=== PATIENT | female | born 1995 | race Native Hawaiian/Other Pacific Islander ===

== ENCOUNTER → 2016-11-17 | Outpatient (CLI) | payer OTHER ==
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
== END | disposition home or self-care (01) ==
LOC: RADUSWWP 16:38
PROVIDERS: ATTEND Obstetrics & Gynecology
DX: Q51.3 Bicornate uterus (principal)
CPT/HCPCS: 76830

== ENCOUNTER 2018-04-09 13:32 | Emergency (ER) | payer OTHER ==
[2018-04-09] MEDS ORDERED: SODIUM CHLORIDE 0.9% 1,000 ML IV STA ×2 (14:49→16:13)
--- NOTE | 2018-04-09 15:04 | ED ---
General Adult HPI - General Chief complaint: Dizziness Stated complaint: dizziness Time Seen by Provider: 04/09/18 14:40 Source: patient, RN notes reviewed Mode of arrival: wheelchair Limitations: no limitations - History of Present Illness Initial comments: Patient 22-year-old female presented to the emergency room today with a chief complaint of near syncopal episode that occurred approximately an hour before arrival. Patient states that she was at work. States she was walking down the hallway carrying a tray when she came very dizzy lightheaded and had to get onto a side rail because she was afraid she was going to fall. Patient does admit the past 2 days she's had these episodes of feeling very dizzy. She states that are happening at random. States lasting just a few minutes at a time. Patient states that appetite has not changed. Denies any changes in medications. Patient does admit to history anxiety and states that she did have some chest pain with the symptoms earlier but thought it was just her anxiety did not think much of it. Patient denies any other complaints or symptoms at this time. Patient denies any recent fever, chills, shortness of breath, chest pain, back pain, abdominal pain, nausea or vomiting, numbness or tingling, headaches or visual changes, or any other complaints. - Related Data Home Medications Medication Instructions Recorded Confirmed Acetaminophen [Tylenol Extra 1,000 mg PO BID PRN 04/09/18 04/09/18 Strength] Levothyroxine Sodium [Synthroid] 25 mcg PO DAILY 04/09/18 04/09/18 Sertraline [Zoloft] 50 mg PO DAILY 04/09/18 04/09/18 traZODone HCL 50 mg PO HS 04/09/18 04/09/18 Allergies Allergy/AdvReac Type Severity Reaction Status Date / Time Sulfa (Sulfonamide Allergy Rash/Hives Verified 04/09/18 16:09 Antibiotics) Review of Systems ROS Statement: Those systems with pertinent positive or pertinent negative responses have been documented in the HPI. ROS Other: All systems not noted in ROS Statement are negative. Past Medical History Past Medical History: Thyroid Disorder Additional Past Medical History / Comment(s): hypothryoid; LUPUS History of Any Multi-Drug Resistant Organisms: None Reported Past Surgical History: Adenoidectomy, Cholecystectomy, Tonsillectomy Past Anesthesia/Blood Transfusion Reactions: No Reported Reaction Past Psychological History: No Psychological Hx Reported Smoking Status: Current every day smoker Past Alcohol Use History: None Reported Past Drug Use History: None Reported - Past Family History Mother Additional Family Medical History / Comment(s): lung cancer father Additional Family Medical History / Comment(s): reproductive CA General Exam - General Exam Comments Initial Comments: General: The patient is awake and alert, in no distress, and does not appear acutely ill. Eye: Pupils are equal, round and reactive to light, extra-ocular movements are intact. No nystagmus. There is normal conjunctiva bilaterally. No signs of icterus. Ears, nose, mouth and throat: There are moist mucous membranes and no oral lesions. Neck: The neck is supple, there is no tenderness or JVD. Cardiovascular: There is a regular rate and rhythm. No murmur, rub or gallop is appreciated. Respiratory: Lungs are clear to auscultation, respirations are non-labored, breath sounds are equal. No wheezes, stridor, rales, or rhonchi. Gastrointestinal: Soft, non-distended, non-tender abdomen without masses or organomegaly noted. There is no rebound or guarding present. No CVA tenderness. Bowel sounds are unremarkable. Musculoskeletal: Normal ROM, no tenderness. Strength 5/5. Sensation intact. Radial pulses equal bilaterally 2+. Neurological: A&O x 3. CN II-XII intact, There are no obvious motor or sensory deficits. Coordination appears grossly intact. Speech is normal. Skin: Skin is warm and dry and no rashes or lesions are noted. Psychiatric: Cooperative, appropriate mood & affect, normal judgment. Limitations: no limitations Course Vital Signs 04/09/18 04/09/18 04/09/18 13:53 15:48 16:41 Temperature 98.4 F Pulse Rate 83 66 Pulse Rate [ 75 Sitting] Pulse Rate [ 71 Standing Pulse Oximetery] Pulse Rate [ 100 Standing] Pulse Rate [ 71 Supine Pulse Oximetery] Respiratory 20 18 16 Rate Blood Pressure 147/84 100/82 Blood Pressure 111/66 [Right Arm Supine] Blood Pressure 120/75 [Sitting] Blood Pressure 120/82 [Standing] O2 Sat by Pulse 97 98 Oximetry EKG Findings - EKG Comments: EKG Findings:: EKG performed at 1417: Shows normal sinus rhythm at 81 bpm. MT interval 140. QRS 82. QT/QTC 360/418. No acute ST changes. Medical Decision Making - Medical Decision Making Patient reexamined at this time shows no signs of distress. Patient orthostatics were positive with heart rate increasing from 71-100 from a sitting to standing position. Patient blood pressure has stayed stable. Patient does admit to feeling better after IV fluids here in emergency room. Labs were reviewed unremarkable. EKG shows normal sinus rhythm. Patient will be discharged home advised to increase oral fluids. Advised to follow-up with the family physician. Advised return for any other concerns. - Lab Data Result diagrams: 04/09/18 15:41 04/09/18 15:41 Lab Results 04/09/18 04/09/18 04/09/18 Range/Units 14:58 14:58 15:41 WBC (3.8-10.6) k/uL RBC (3.80-5.40) m/uL Hgb (11.4-16.0) gm/dL Hct (34.0-46.0) % MCV (80.0-100.0) fL MCH (25.0-35.0) pg MCHC (31.0-37.0) g/dL RDW (11.5-15.5) % Plt Count (150-450) k/uL Neutrophils % % Lymphocytes % % Monocytes % % Eosinophils % % Basophils % % Neutrophils # (1.3-7.7) k/uL Lymphocytes # (1.0-4.8) k/uL Monocytes # (0-1.0) k/uL Eosinophils # (0-0.7) k/uL Basophils # (0-0.2) k/uL PT (9.0-12.0) sec INR (<1.2) APTT (22.0-30.0) sec D-Dimer (<0.60) mg/L FEU Sodium (137-145) mmol/L Potassium (3.5-5.1) mmol/L Chloride (98-107) mmol/L Carbon Dioxide (22-30) mmol/L Anion Gap mmol/L BUN (7-17) mg/dL Creatinine (0.52-1.04) mg/dL Est GFR (CKD-EPI)AfAm (>60 ml/min/1.73 sqM) Est GFR (CKD-EPI)NonAf (>60 ml/min/1.73 sqM) Glucose (74-99) mg/dL Calcium (8.4-10.2) mg/dL Total Bilirubin (0.2-1.3) mg/dL AST (14-36) U/L ALT (9-52) U/L Alkaline Phosphatase (38-126) U/L Total Creatine Kinase 121 (30-135) U/L CK-MB (CK-2) 0.4 (0.0-2.4) ng/mL CK-MB (CK-2) Rel Index 0.3 Troponin I <0.012 (0.000-0.034) ng/mL Total Protein (6.3-8.2) g/dL Albumin (3.5-5.0) g/dL Urine Color Yellow Urine Appearance Clear (Clear) Urine pH 7.5 (5.0-8.0) Ur Specific [place] 1.019 (1.001-1.035) Urine Protein Negative (Negative) Urine Glucose (UA) Negative (Negative) Urine Ketones Negative (Negative) Urine Blood Negative (Negative) Urine Nitrite Negative (Negative) Urine Bilirubin Negative (Negative) Urine Urobilinogen <2.0 (<2.0) mg/dL Ur Leukocyte Esterase Negative (Negative) Urine HCG, Qual Not Detected (Not Detectd) 04/09/18 04/09/18 04/09/18 Range/Units 15:41 15:41 15:41 WBC 10.0 (3.8-10.6) k/uL RBC 5.03 (3.80-5.40) m/uL Hgb 15.2 (11.4-16.0) gm/dL Hct 46.7 H (34.0-46.0) % MCV 92.7 (80.0-100.0) fL MCH 30.2 (25.0-35.0) pg MCHC 32.6 (31.0-37.0) g/dL RDW 12.7 (11.5-15.5) % Plt Count 329 (150-450) k/uL Neutrophils % 71 % Lymphocytes % 24 % Monocytes % 4 % Eosinophils % 1 % Basophils % 0 % Neutrophils # 7.0 (1.3-7.7) k/uL Lymphocytes # 2.3 (1.0-4.8) k/uL Monocytes # 0.4 (0-1.0) k/uL Eosinophils # 0.1 (0-0.7) k/uL Basophils # 0.0 (0-0.2) k/uL PT 10.2 (9.0-12.0) sec INR 0.9 (<1.2) APTT 25.9 (22.0-30.0) sec D-Dimer 0.23 (<0.60) mg/L FEU Sodium 138 (137-145) mmol/L Potassium 4.9 (3.5-5.1) mmol/L Chloride 105 (98-107) mmol/L Carbon Dioxide 25 (22-30) mmol/L Anion Gap 8 mmol/L BUN 16 (7-17) mg/dL Creatinine 0.63 (0.52-1.04) mg/dL Est GFR (CKD-EPI)AfAm >90 (>60 ml/min/1.73 sqM) Est GFR (CKD-EPI)NonAf >90 (>60 ml/min/1.73 sqM) Glucose 89 (74-99) mg/dL Calcium 10.0 (8.4-10.2) mg/dL Total Bilirubin 0.5 (0.2-1.3) mg/dL AST 25 (14-36) U/L ALT 21 (9-52) U/L Alkaline Phosphatase 116 (38-126) U/L Total Creatine Kinase (30-135) U/L CK-MB (CK-2) (0.0-2.4) ng/mL CK-MB (CK-2) Rel Index Troponin I (0.000-0.034) ng/mL Total Protein 7.4 (6.3-8.2) g/dL Albumin 4.3 (3.5-5.0) g/dL Urine Color Urine Appearance (Clear) Urine pH (5.0-8.0) Ur Specific [place] (1.001-1.035) Urine Protein (Negative) Urine Glucose (UA) (Negative) Urine Ketones (Negative) Urine Blood (Negative) Urine Nitrite (Negative) Urine Bilirubin (Negative) Urine Urobilinogen (<2.0) mg/dL Ur Leukocyte Esterase (Negative) Urine HCG, Qual (Not Detectd) Disposition Clinical Impression: Orthostatic dizziness Disposition: HOME SELF-CARE Condition: Good Instructions (If sedation given, give patient instructions): Dizziness (ED) Additional Instructions: Please increase oral fluids as discussed. Please follow the family doctor over the next 2 days. Please return here to the emergency room for any other concerns. Is patient prescribed a controlled substance at d/c from ED?: No Referrals: Benito Carreon DO [Primary Care Provider] - 1-2 days Time of Disposition: 17:10
[2018-04-09 15:11] LABS: Appearance,Urine Clear (Clear); Bilirubin,Urine Negative (Negative); Blood,Urine Negative (Negative); Color,Urine Yellow; Glucose,Urine (UA) Negative (Negative); Ketones,Urine Negative (Negative); Leukocyte Esterase,Urine Negative (Negative); Nitrite,Urine Negative (Negative); PH, Urine 7.5 (5.0-8.0); Protein,Urine Negative (Negative); Specific Gravity,Urine 1.019 (1.001-1.035); Urobilinogen,Urine <2.0 mg/dL (<2.0)
--- NOTE | 2018-04-09 15:36 | XR ---
EXAMINATION TYPE: XR chest 2V DATE OF EXAM: 04/09/2018 CLINICAL HISTORY: Pain TECHNIQUE: Frontal and lateral views of the chest are obtained. COMPARISON: 05/27/2005 FINDINGS: There is no focal air space opacity, pleural effusion, or pneumothorax seen. The cardiac silhouette size is within normal limits. The osseous structures are intact. IMPRESSION: No acute cardiopulmonary process.
[2018-04-09 15:55] LABS: Basophils % (A) 0 %; Eosinophils # (A) 0.1 k/uL (0-0.7); Eosinophils % (A) 1 %; HCT 46.7 % (34.0-46.0); HGB 15.2 gm/dL (11.4-16.0); Lymphocytes # (A) 2.3 k/uL (1.0-4.8); Lymphocytes % (A) 24 %; MCH 30.2 pg (25.0-35.0); MCHC 32.6 g/dL (31.0-37.0); MCV 92.7 fL (80.0-100.0); Mean Platelet Volume 6.3; Monocytes # (A) 0.4 k/uL (0-1.0); Monocytes % (A) 4 %; Neutrophils % (A) 71 %; Platelet Count 329 k/uL (150-450); RBC 5.03 m/uL (3.80-5.40); RDW 12.7 % (11.5-15.5)
[2018-04-09 16:06] LABS: D-Dimer 0.23 mg/L FEU (<0.60); INR 0.9 (<1.2); Partial Thromboplastin Time 25.9 sec (22.0-30.0); Prothrombin Time 10.2 sec (9.0-12.0)
[2018-04-09 16:14] LABS: Creatine Kinase 121 U/L (30-135)
[2018-04-09 16:16] LABS: ALT 21 U/L (9-52); AST 25 U/L (14-36); Albumin 4.3 g/dL (3.5-5.0); Alkaline Phosphatase 116 U/L (38-126); Anion Gap 8 mmol/L; Blood Urea Nitrogen 16 mg/dL (7-17); Carbon Dioxide 25 mmol/L (22-30); Chloride 105 mmol/L (98-107); Glucose 89 mg/dL (74-99); Potassium 4.9 mmol/L (3.5-5.1); Sodium 138 mmol/L (137-145); Total Bilirubin 0.5 mg/dL (0.2-1.3); Total Protein 7.4 g/dL (6.3-8.2)
[2018-04-09 16:26] LABS: Creatine Kinase MB 0.4 ng/mL (0.0-2.4); Troponin I <0.012 ng/mL (0.000-0.034)
[2018-04-09 19:17] VITALS: BP 100/72; PULSE 99; RESP 18; TEMP 98.2
== END 2018-04-09 19:15 | disposition home or self-care (01) ==
LOC: EC 13:32
DX: R42 Dizziness and giddiness (principal); E03.9 Hypothyroidism, unspecified; F41.9 Anxiety disorder, unspecified; F17.200 Nicotine dependence, unspecified, uncomplicated; Z88.2 Allergy status to sulfonamides; Z79.890 Hormone replacement therapy; Z79.899 Other long term (current) drug therapy
CPT/HCPCS: 36415; 71046; 80053; 81003; 81025; 82550; 82553; 84484; 85025; 85379; 85610; 85730; 93005; 96360; 96361; 99284

== ENCOUNTER 2018-07-08 09:10 | Inpatient (IN) | payer MEDICAID, OTHER ==
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
[2018-07-08 10:57] LABS: Amphetamine Screen,Urine Not Detected (NotDetected); Barbiturate Screen,Urine Not Detected (NotDetected); Benzodiazepines Screen,Urine Not Detected (NotDetected); Cocaine Screen,Urine Not Detected (NotDetected); Methadone Screen, Urine Not Detected (NotDetected); Opiate Screen,Urine Not Detected (NotDetected); Oxycodone Screen, Urine Not Detected (NotDetected); Phencyclidine Screen,Urine Not Detected (NotDetected); Tricyclic Antidepressant,Urine Not Detected (NotDetected); Urn Cannabinoid Scrn Not Detected (NotDetected)
[2018-07-08] MEDS ORDERED: ACETAMINOPHEN TAB 325 MG TAB PO PRN (14:58)
[2018-07-08] MEDS ORDERED: LORazepam 1 MG TAB PO PRN (14:58)
[2018-07-08] MEDS ORDERED: ZIPRASIDONE 20 MG VIAL IM PRN (14:58)
[2018-07-08] MEDS ORDERED: MAG HYDROX/AL HYDROX/SIMETH 30 ML CUP PO PRN (14:58)
[2018-07-08] MEDS ORDERED: MAGNESIUM HYDROXIDE 2,400 MG/10 ML CUP PO PRN (14:58)
[2018-07-08] MEDS ORDERED: LORazepam 2 MG/ML INJ IM PRN (15:00)
[2018-07-08 16:16] LABS: Amorphous Sediment,Urine Rare /hpf; Appearance,Urine Turbid (Clear); Bacteria,Urine Many /hpf; Bilirubin,Urine Negative (Negative); Blood,Urine Negative (Negative); Color,Urine Yellow; Glucose,Urine (UA) Negative (Negative); Ketones,Urine Negative (Negative); Leukocyte Esterase,Urine Negative (Negative); Mucus,Urine Moderate /hpf; Nitrite,Urine Negative (Negative); Protein,Urine 1+ (Negative); Specific Gravity,Urine 1.036 (1.001-1.035)
[2018-07-08] MEDS ORDERED: SERTRALINE 25 MG TAB PO SCH (21:00)
[2018-07-09] MEDS: NICOTINE 21MG/24HR PATCH TRANSDERM SCH ×2 (01:59→21:11)
[2018-07-09] MEDS: LEVOTHYROXINE 25 MCG TAB PO SCH (06:50)
--- NOTE | 2018-07-09 07:33 | CONS ---
CONSULTATION DATE OF CONSULTATION: 07/08/2018 REASON FOR CONSULTATION: Medical management requested by Dr. Miller. CONSULTATION: This is a 22-year-old patient of Dr. Benito Carreon. Chronic stable medical conditions include hypothyroid, lupus, and nicotine dependence. Patient is undergoing a divorce. She has been for 3 years and was with this person for the last 13 years. They also have a child, which is from his previous relationship. There is a lot of argument between the 2 families and she is currently living by herself. The patient presented to the ER this morning complaining of depression, suicidal ideation. She did take some extra trazodone last night. The patient has not been sleeping well. Appetite is also dwindled. The patient also has got lupus, that does seem to flare up in the skin and the face when it is nelia and often sometimes she gets tired. The patient does smoke cigarettes. REVIEW OF SYSTEMS: CONSTITUTIONAL: None. HEENT: None. RESPIRATORY: None. CARDIOVASCULAR: None. GASTROINTESTINAL: None. GENITOURINARY: None. MUSCULOSKELETAL: None. DERMATOLOGICAL: Some chronic skin changes. HEMATOLOGICAL: None. LYMPHATIC: None. PSYCHIATRY: Anxiety and depression. NEUROLOGICAL: None. PAST MEDICAL HISTORY: History of lupus, hypothyroid, depression. PAST SURGICAL HISTORY: Adenoidectomy, cholecystectomy, tonsillectomy. SOCIAL HISTORY: Smokes anywhere from half to a pack a day. Currently living by herself. No alcohol. No other recreational drugs. 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 FAMILY HISTORY: Family history of lung cancer. HOME MEDICATIONS: 1. Trazodone 50 mg at bedtime. 2. Zoloft 50 mg p.o. daily. 3. Synthroid 25 mcg a day. ALLERGIES: Allergies to SULFA. PHYSICAL EXAMINATION: On examination, temperature 97.5, pulse 86, respiration 16, blood pressure 124/66, pulse ox 98% on room air. GENERAL APPEARANCE: Well built, BMI 51.2. Sitting up, a bit anxious. EYES: Pupils equal. Conjunctivae normal. HENT: External appearance of nose and ears normal. Oral cavity normal. NECK: JVD not raised. Mass not palpable. RESPIRATORY: Effort normal. LUNGS: Fair entry. CARDIOVASCULAR: First and second sounds normal. No edema. ABDOMEN: Soft, nontender. Liver and spleen not palpable. LYMPHATIC: No lymph node palpable in the neck and axillae. PSYCHIATRY: Alert and oriented x3. Slightly anxious appearing. NEUROLOGICAL: Pupils equal. Cranial nerves grossly intact. Power and sensation grossly intact. INVESTIGATIONS: Urine drug screen negative. Urine HCG negative. ASSESSMENT: 1. Morbid obesity, body mass index 51.2. 2. Hypothyroid. 3. Chronic nicotine dependence. Patient is a cigarette smoker. 4. Chronic lupus, primarily affecting the skin. 5. Chronic insomnia cause unclear. PLAN: Patient's dose of Synthroid will be resumed. Patient advised against smoking, will be given a nicotine patch. Will check patient's TSH. The patient should see a dietitian for weight loss measures. We will put a consult for the same. Patient should follow with Dr. Carreon upon discharge. Thank you Dr. Miller. MADDIL / BEATRIZN: [id number] /
[2018-07-09 09:56] LABS: Basophils # (A) 0.1 k/uL (0-0.2); Basophils % (A) 1 %; Eosinophils % (A) 0 %; HCT 47.3 % (34.0-46.0); HGB 15.1 gm/dL (11.4-16.0); Lymphocytes # (A) 2.6 k/uL (1.0-4.8); Lymphocytes % (A) 27 %; MCH 29.7 pg (25.0-35.0); MCHC 31.9 g/dL (31.0-37.0); MCV 93.1 fL (80.0-100.0); Mean Platelet Volume 7.4; Monocytes # (A) 0.4 k/uL (0-1.0); Monocytes % (A) 4 %; Neutrophils # (A) 6.4 k/uL (1.3-7.7); Neutrophils % (A) 67 %; Platelet Count 380 k/uL (150-450); RBC 5.08 m/uL (3.80-5.40); RDW 13.9 % (11.5-15.5); WBC 9.6 k/uL (3.8-10.6)
[2018-07-09 09:57] LABS: ALT 35 U/L (9-52); AST 26 U/L (14-36); Albumin 4.7 g/dL (3.5-5.0); Alkaline Phosphatase 117 U/L (38-126); Anion Gap 10 mmol/L; Blood Urea Nitrogen 18 mg/dL (7-17); Calcium 10.3 mg/dL (8.4-10.2); Carbon Dioxide 25 mmol/L (22-30); Chloride 105 mmol/L (98-107); Cholesterol 145 mg/dL (<200); Glucose 99 mg/dL (74-99); HDL Cholesterol 28 mg/dL (40-60); LDL Cholesterol,Calculated 85 mg/dL (0-99); Potassium 4.7 mmol/L (3.5-5.1); Sodium 140 mmol/L (137-145); Total Bilirubin 0.7 mg/dL (0.2-1.3); Total Protein 7.7 g/dL (6.3-8.2); Triglycerides 160 mg/dL (<150)
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
[2018-07-09 19:13] LABS: Hemoglobin A1C 5.5 % (4.0-6.0)
[2018-07-10] MEDS: LEVOTHYROXINE 25 MCG TAB PO SCH (05:43)
[2018-07-10] MEDS: DESVENLAFAXINE SUCCINATE 50 MG TAB.ER.24H PO SCH (09:31)
[2018-07-10 10:06] VITALS: BMI 51.1
[2018-07-10] MEDS ORDERED: traZODone HCL 50 MG TAB PO PRN (10:06)
--- NOTE | 2018-07-10 10:19 | P.PN ---
Progress Note - Text Interval history: The patient is found in group she follows me to an interview room. She indicates her mood is improving. She was able to sleep last night despite disturbances. She asked that she have trazodone available if needed. She has no questions or concerns regarding the Pristiq. She is anticipating a visit from her sister and mother this evening and is looking forward to that. The patient has been attending groups and attending to her activities of daily living. Mental status exam: The patient is alert she is dressed in her own clothing hygiene grooming are adequate. Speech is fluent spontaneous nonpressured. She reports that she feels safe she indicates no strong suicidal ideation in the hospital. She reflects on information she has obtained from groups. She is reporting no thoughts of harming others she reports no auditory or visual hallucinations or any specific delusions. She demonstrates no verbal or physical aggressiveness. She remains oriented to person place and date. Affect is appropriately expresses. Insight and judgment improving. Plan: The patient will continue on her current psychotropic medication we will add the trazodone 50 mg at bedtime if needed for insomnia. We will await the results of her family visit this evening. Social work will arrange a support meeting involving family. The patient's encouraged to continue participating in the milieu. We will continue to monitor her for safety. Lab results reviewed vital signs reviewed.
[2018-07-10] MEDS: NICOTINE 21MG/24HR PATCH TRANSDERM SCH (20:36)
[2018-07-11] MEDS: LEVOTHYROXINE 25 MCG TAB PO SCH (06:28)
[2018-07-11 06:54] LABS: Glucose,Whole Blood 92 mg/dL (75-99)
[2018-07-11 07:02] VITALS: RESP 16
--- NOTE | 2018-07-11 08:50 | P.DS ---
Providers Date of admission: 07/08/18 13:27 Expected date of discharge: 07/11/18 Attending physician: Julito Miller Consults: 07/08/18 14:58 Consult Physician Routine Consulting Provider: Ludin Rascon Consult Reason/Comments: H&P and medical Do you want consulting provider notified?: Yes Primary care physician: Benito Carreon - Discharge Diagnosis(es) (1) Major depressive disorder, recurrent severe without psychotic features Current Visit: Yes Status: Acute Priority: High Hospital Course: Brief summary of admission note: This patient is a 22-year-old female who was admitted to the mental health unit through the emergency room with suicidal ideation status post overdose with approximately 12 trazodone tablets. The patient had stated that Sunday night she was feeling overwhelmed and took the rest of her trazodone prescription an attempt to end her life. She reported that she had been feeling progressively more depressed over the last several weeks and was having suicidal ideation. She states her appetite had been decreased she's been more tearful and felt overwhelmed. Prior to the overdose she had a verbal altercation with her mother the patient is in the process of from her . For full details please refer to my psychiatric evaluation dated 07/09/2018. Summary of hospital course: The patient was admitted to the mental health unit she signed in voluntarily. We reviewed her presenting symptoms and treatment options. We decided that we would discontinue the Zoloft and initiate Pristiq 50 mg daily. Trazodone was used as needed 50 mg at bedtime. The patient's reporting no side effects from the Pristiq. She has attended all groups she has been pleasant cooperative and engaged in treatment. She had a visit with family last evening she states that went well. She is scheduled to participate in a support meeting today prior to discharge with her mother. The patient was seen by internal medicine for routine history and physical exam. Social work has met with the patient to complete a psychosocial assessment and to facilitate discharge planning. She states that there has been a resolution of any suicidal ideation. She has been participating in her own activities of daily living. She demonstrates future oriented thinking. Mental status exam: The patient is an obese female appearing her stated age. She has adequate hygiene grooming. Eye contact is appropriate speech is fluent spontaneous nonpressured. She demonstrates no tangential thinking loose associations or flight of ideas. She does not appear hypomanic or manic. She describes her mood as being better. Affect is bright and congruent. She is reporting no hopelessness thinking no suicidal ideation intent or plan. She reports no homicidal ideation intent or plan. She reports no auditory or visual hallucinations or specific delusions. There is no observed evidence of psychosis. She demonstrates no verbal or physical aggressiveness. Insight and judgment grossly intact. She is oriented to person place and date. Impressions 1. Major depressive disorder recurrent severe without psychosis Plan: The patient will be discharged mental health unit today to return home. She will participate in a support meeting involving her mother to be facilitated by social work. The patient will continue on Pristiq 50 mg daily, trazodone 50 mg at bedtime as needed. She reports no use of alcohol marijuana or illicit drugs she is encouraged to continue abstaining from those substances. Social work will arrange for outpatient mental health follow-up. The patient verbalizes she is motivated to work with an individual therapist. At this time there is no imminent safety risk she requires no further psychiatric hospitalization and is appropriate for transition to outpatient care. She is instructed that she may return to the hospital with any acute safety concerns. Patient Condition at Discharge: Stable Plan - Discharge Summary New Discharge Prescriptions: New traZODone HCL [Desyrel] 50 mg PO HS PRN #30 tab PRN Reason: Insomnia Nicotine 21Mg/24Hr Patch [Habitrol] 1 patch TRANSDERM HS #14 patch Desvenlafaxine Succinate [Pristiq ER] 50 mg PO DAILY #30 tab.er.24h Continue Levothyroxine Sodium [Synthroid] 25 mcg PO DAILY Discontinued traZODone HCL 50 mg PO HS Sertraline [Zoloft] 50 mg PO DAILY Discharge Medication List Levothyroxine Sodium [Synthroid] 25 mcg PO DAILY 04/09/18 [History] Desvenlafaxine Succinate [Pristiq ER] 50 mg PO DAILY #30 tab.er.24h 07/11/18 [Rx] Nicotine 21Mg/24Hr Patch [Habitrol] 1 patch TRANSDERM HS #14 patch 07/11/18 [Rx] traZODone HCL [Desyrel] 50 mg PO HS PRN #30 tab 07/11/18 [Rx] Follow up Appointment(s)/Referral(s): [facility] [Outside] - 07/15/18 1:30 pm (Brian Farias 13:30 for paperwork 14:00appointment ) Benito Carreon DO [Primary Care Provider] - 1-2 days
[2018-07-11] MEDS: DESVENLAFAXINE SUCCINATE 50 MG TAB.ER.24H PO SCH (09:07)
[2018-07-11 10:30] VITALS: BP 124/66; PULSE 86; TEMP 97.5
== END 2018-07-11 12:15 | disposition home or self-care (01) | DRG 885 ==
LOC: EC 09:10 → 3MHU 13:27
PROVIDERS: ADMIT Psychiatry & Neurology Psychiatry; ATTEND Psychiatry & Neurology Psychiatry
DX: F33.2 Major depressive disorder, recurrent severe without psychotic features (principal); Z68.43 Body mass index [BMI] 50.0-59.9, adult; E03.9 Hypothyroidism, unspecified; E66.01 Morbid (severe) obesity due to excess calories; F17.210 Nicotine dependence, cigarettes, uncomplicated; F41.0 Panic disorder [episodic paroxysmal anxiety]; F51.04 Psychophysiologic insomnia; Z79.890 Hormone replacement therapy; Z79.899 Other long term (current) drug therapy; Z80.1 Family history of malignant neoplasm of trachea, bronchus and lung; T43.226A Underdosing of selective serotonin reuptake inhibitors, initial encounter; Z91.128 Patient's intentional underdosing of medication regimen for other reason; Z88.2 Allergy status to sulfonamides; T43.212A Poisoning by selective serotonin and norepinephrine reuptake inhibitors, intentional self-harm, initial encounter; L93.0 Discoid lupus erythematosus; Z60.2 Problems related to living alone; Z63.5 Disruption of family by separation and divorce; Z71.3 Dietary counseling and surveillance; Z90.49 Acquired absence of other specified parts of digestive tract
CPT/HCPCS: 80053; 80061; 80306; 81001; 81025; 82075; 83036; 84443; 85025; 93005; 99285

== ENCOUNTER → 2018-11-06 | Outpatient (CLI) | payer OTHER ==
--- NOTE | 2018-11-06 09:14 | ECHOF ---
Referral Reason:I51.7 cardiomegaly MEASUREMENTS -------- HEIGHT: 160.0 cm WEIGHT: 138.3 kg BP: RVIDd: 3.5 cm (< 3.3) IVSd: 1.0 cm (0.6 - 1.1) LVIDd: 4.4 cm (3.9 - 5.3) LVPWd: 1.1 cm (0.6 - 1.1) IVSs: 1.7 cm LVIDs: 2.7 cm LVPWs: 1.4 cm LAESV Index (A-L): 25.86 ml/m Ao Diam: 2.7 cm (2.0 - 3.7) AV Cusp: 1.9 cm (1.5 - 2.6) LA Diam: 4.0 cm (2.7 - 3.8) MV EXCURSION: 20.130 mm (> 18.000) MV EF SLOPE: 132 mm/s (70 - 150) EPSS: 0.5 cm MV E Eben: 0.81 m/s MV DecT: 182 ms MV A Eben: 0.60 m/s MV E/A Ratio: 1.35 RAP: 5.00 mmHg RVSP: 18.36 mmHg FINDINGS -------- Sinus rhythm. This was a technically adequate study. The left ventricular size is normal. Left ventricular wall thickness is normal. Overall left vent ricular systolic function is normal with, an EF between 55 - 60 %. The diastolic filling pattern is normal for the age of the patient 6.08. The right ventricle is normal in size. The left atrium is mildly dilated. Normal LA size by volume 22+/-6 ml/m2. The right atrial size is normal. Interatrial and interventricular septum intact. The aortic valve is trileaflet and appears structurally normal. The mitral valve is normal. There is trace mitral regurgitation. Trace tricuspid regurgitation present. Right ventricular systolic pressure is normal at < 35 mmHg. There is no pulmonic regurgitation present. The aortic root size is normal. Normal inferior vena cava with normal inspiratory collapse consistent with estimated right atrial pre ssure of 5 mmHg. The flow patterns, measured by Doppler, appear normal. There is no pericardial effusion. CONCLUSIONS -------- 1. Sinus rhythm. 2. This was a technically adequate study. 3. The left ventricular size is normal. 4. Left ventricular wall thickness is normal. 5. Overall left ventricular systolic function is normal with, an EF between 55 - 60 %. 6. The diastolic filling pattern is normal for the age of the patient 6.08 7. The right ventricle is normal in size. 8. The left atrium is mildly dilated. 9. Normal LA size by volume 22+/-6 ml/m2. 10. The right atrial size is normal. 11. Interatrial and interventricular septum intact. 12. The aortic valve is trileaflet and appears structurally normal. 13. The mitral valve is normal. 14. There is trace mitral regurgitation. 15. Trace tricuspid regurgitation present. 16. Right ventricular systolic pressure is normal at < 35 mmHg. 17. There is no pulmonic regurgitation present. 18. The aortic root size is normal. 19. Normal inferior vena cava with normal inspiratory collapse consistent with estimated right atrial pressure of 5 mmHg. 20. The flow patterns, measured by Doppler, appear normal. 21. There is no pericardial effusion. MANAGER REPORT: Sindi Barton RDCS
== END | disposition home or self-care (01) ==
LOC: RADECHMAIN 08:29
PROVIDERS: ATTEND Family Medicine
DX: I51.7 Cardiomegaly (principal)
CPT/HCPCS: 93306

== ENCOUNTER 2019-01-07 13:40 | Emergency (ER) | payer OTHER ==
[2019-01-07 14:03] VITALS: PULSE 85; TEMP 98.3
[2019-01-07] MEDS ORDERED: CEPHALEXIN 500MG STARTER PACK 4 CAP BTL PO STA (14:27)
--- NOTE | 2019-01-07 14:28 | ED ---
General Adult HPI - General Chief complaint: ENT Stated complaint: Lump in neck Time Seen by Provider: 01/07/19 14:03 Source: patient, RN notes reviewed, old records reviewed Mode of arrival: ambulatory Limitations: no limitations - History of Present Illness Initial comments: 23-year-old female patient comes to ED chief complaint of painful lymph nodes on right side of her neck ongoing for approximately 3 days. Mild right-sided otalgia. She also reports some mild rhinitis. Patient denies any other complaints. Patient has a history of lupus. Patient not on any current medications for this. Denies any chance of being . Systemic: Pt denies fatigue, fever/chills, rash. Pt denies weakness, night sweats, weight loss. Neuro: Pt denies headache, visual disturbances, syncope or pre-syncope. HEENT: Pt denies ocular discharge or irritation, pharyngitis. Cardiopulmonary: Pt denies chest pain, SOB, heart palpitations, dyspnea on exertion. Abdominal/GI: Pt denies abdominal pain, n/v/d. : Pt denies dysuria, burning w/ urination, frequency/urgency. Denies new onset urinary or bowel incontinence. MSK: Pt denies myalgia, loss of strength or function in extremities. Neuro: Pt denies new onset weakness, paresthesias. - Related Data Home Medications Medication Instructions Recorded Confirmed Levothyroxine Sodium [Synthroid] 25 mcg PO DAILY 04/09/18 07/08/18 Previous Rx's Medication Instructions Recorded Desvenlafaxine Succinate [Pristiq 50 mg PO DAILY #30 tab.er.24h 07/11/18 ER] Nicotine 21Mg/24Hr Patch [Habitrol] 1 patch TRANSDERM HS #14 patch 07/11/18 traZODone HCL [Desyrel] 50 mg PO HS PRN #30 tab 07/11/18 Cephalexin [Keflex] 500 mg PO Q6HR 7 Days #28 cap 01/07/19 Allergies Allergy/AdvReac Type Severity Reaction Status Date / Time Sulfa (Sulfonamide Allergy Rash/Hives Verified 01/07/19 14:03 Antibiotics) Review of Systems ROS Statement: Those systems with pertinent positive or pertinent negative responses have been documented in the HPI. ROS Other: All systems not noted in ROS Statement are negative. Past Medical History Past Medical History: Thyroid Disorder Additional Past Medical History / Comment(s): hypothryoid; LUPUS History of Any Multi-Drug Resistant Organisms: None Reported Past Surgical History: Adenoidectomy, Cholecystectomy, Tonsillectomy Past Anesthesia/Blood Transfusion Reactions: No Reported Reaction Past Psychological History: Anxiety, Depression Smoking Status: Current every day smoker Past Alcohol Use History: None Reported Past Drug Use History: None Reported - Past Family History Mother Additional Family Medical History / Comment(s): lung cancer father Additional Family Medical History / Comment(s): reproductive CA General Exam - General Exam Comments Initial Comments: Constitutional: NAD, AOX3, Pt has pleasant affect. HEENT: NC/AT, trachea midline, neck supple, mild right-sided submandibular lymphadenopathy noted. No fluctuance, no skin changes.. Posterior pharynx non erythematous, without exudates. External ears appear normal, without discharge. TM pale garcia bilaterally. Mucous membranes moist. Eyes PERRLA, EOM intact. There is no scleral icterus. No pallor noted. Cardiopulmonary: RRR, no murmurs, rubs or gallops, no JVD noted. Lungs CTAB in anterior and posterior nieto. No peripheral edema. Abdominal exam: Abdomen soft and non-distended. Abdomen non-tender to palpation in all 4 quadrants. Bowel sounds active in LLQ. No hepatosplenomegaly. No ecchymosis Neuro: CN II-XII grossly intact. No nuchal rigidity. No raccon eyes, no fleming sign, no hemotympanum. No cervical spinal tenderness. MSK: No posterior calf tenderness bilaterally, homans sign negative bilaterally. Posterior tibialis and radial pulse +2 bilaterally. Sensation intact in upper and lower extremities. Full active ROM in upper and lower extremities, 5/5 stregnth. Limitations: no limitations Course Vital Signs 01/07/19 14:00 Temperature 98.3 F Pulse Rate 85 Respiratory 18 Rate Blood Pressure 151/91 O2 Sat by Pulse 100 Oximetry Medical Decision Making - Medical Decision Making 23-year-old female patient comes to ED chief complaint of painful lymph nodes on right side of her neck ongoing for approximately 3 days. Mild right-sided otalgia. She also reports some mild rhinitis. Patient denies any other complaints. Patient has a history of lupus. Patient not on any current medications for this. Denies any chance of being . Patient will signs are stable, afebrile. Physical exam displayed mild lymphadenopathy. No skin changes. Patient will be placed on Keflex for lymphadenitis. We'll also patient follow up with primary care provider. Will return to ER if condition worsens. Case discussed with Dr. Mo. Disposition Clinical Impression: Lymphadenitis Disposition: HOME SELF-CARE Condition: Stable Instructions (If sedation given, give patient instructions): Adenitis (ED) Additional Instructions: Patient to adhere to previously discussed treatment plan and will take medication(s) as directed. Patient to follow up with PCP in 1-2 days. Patient to return to ED if symptoms do not improve. Take antibiotics as directed. Follow up with primary care provider tomorrow. Return to ER if condition worsens in any way. Prescriptions: Cephalexin [Keflex] 500 mg PO Q6HR 7 Days #28 cap Is patient prescribed a controlled substance at d/c from ED?: No Referrals: Benito Carreon DO [Primary Care Provider] - 1-2 days
[2019-01-07 14:45] VITALS: BP 140/88; RESP 16
== END 2019-01-07 14:30 | disposition home or self-care (01) ==
LOC: EC 13:40
DX: I88.9 Nonspecific lymphadenitis, unspecified (principal); J31.0 Chronic rhinitis; H92.01 Otalgia, right ear; E03.9 Hypothyroidism, unspecified; F17.200 Nicotine dependence, unspecified, uncomplicated; Z88.2 Allergy status to sulfonamides; Z79.890 Hormone replacement therapy; Z86.2 Personal history of diseases of the blood and blood-forming organs and certain disorders involving the immune mechanism
CPT/HCPCS: 99283

== ENCOUNTER 2019-04-08 12:50 | Emergency (ER) | payer OTHER ==
[2019-04-08 13:12] VITALS: BP 153/76; PULSE 90; RESP 20; TEMP 98.1
[2019-04-08] MEDS ORDERED: LIDOCAINE 1% INJ 10MG/ML (20 ML MDV) SQ ONE (13:21)
--- NOTE | 2019-04-08 13:48 | XR ---
Left hand HISTORY: Laceration to palm 3 views of the left hand Bone mineralization, joint spaces and alignment are maintained. No radiopaque foreign body. IMPRESSION: Unremarkable left hand.
--- NOTE | 2019-04-08 14:15 | ED ---
Wound/Laceration HPI - General Chief Complaint: Wound/Laceration Stated Complaint: Finger Laceration Time Seen by Provider: 04/08/19 13:17 Source: patient, RN notes reviewed Mode of arrival: ambulatory Limitations: no limitations - History of Present Illness Initial Comments: 23-year-old female presents emergency Department with chief complaint of left hand laceration. She states that she was trying to break apart to frozen chicken breasts and states it slipped stabbing her left hand. She is right-hand dominant no paresthesias she has full range of motion of all digits her tetanus is up-to-date within last one year. Patient offers no other complaints. - Related Data Home Medications Medication Instructions Recorded Confirmed Levothyroxine Sodium [Synthroid] 25 mcg PO DAILY 04/09/18 07/08/18 Previous Rx's Medication Instructions Recorded Desvenlafaxine Succinate [Pristiq 50 mg PO DAILY #30 tab.er.24h 07/11/18 ER] Nicotine 21Mg/24Hr Patch [Habitrol] 1 patch TRANSDERM HS #14 patch 07/11/18 traZODone HCL [Desyrel] 50 mg PO HS PRN #30 tab 07/11/18 Cephalexin [Keflex] 500 mg PO Q6HR 7 Days #28 cap 01/07/19 Allergies Allergy/AdvReac Type Severity Reaction Status Date / Time Sulfa (Sulfonamide Allergy Rash/Hives Verified 04/08/19 13:12 Antibiotics) Review of Systems ROS Statement: Those systems with pertinent positive or pertinent negative responses have been documented in the HPI. ROS Other: All systems not noted in ROS Statement are negative. Past Medical History Past Medical History: Thyroid Disorder Additional Past Medical History / Comment(s): hypothryoid; LUPUS History of Any Multi-Drug Resistant Organisms: None Reported Past Surgical History: Adenoidectomy, Cholecystectomy, Tonsillectomy Past Anesthesia/Blood Transfusion Reactions: No Reported Reaction Past Psychological History: Anxiety, Depression Smoking Status: Current every day smoker Past Alcohol Use History: None Reported Past Drug Use History: None Reported - Past Family History Mother Additional Family Medical History / Comment(s): lung cancer father Additional Family Medical History / Comment(s): reproductive [place] General Exam Limitations: no limitations General appearance: alert, in no apparent distress Head exam: Present: atraumatic, normocephalic, normal inspection Eye exam: Present: normal appearance, PERRL, EOMI. Absent: scleral icterus, conjunctival injection, periorbital swelling Neck exam: Present: normal inspection, full ROM. Absent: tenderness, meningismus, lymphadenopathy Respiratory exam: Present: normal lung sounds bilaterally. Absent: respiratory distress, wheezes, rales, rhonchi, stridor Cardiovascular Exam: Present: regular rate, normal rhythm, normal heart sounds. Absent: systolic murmur, diastolic murmur, rubs, gallop, clicks Extremities exam: Present: other (Left hand there is a 1 cm laceration between her first and second digit patient's full range of motion neurovascular intact) Course Vital Signs 04/08/19 13:09 Temperature 98.1 F Pulse Rate 90 Respiratory 20 Rate Blood Pressure 153/76 O2 Sat by Pulse 97 Oximetry Procedures - Laceration Laceration #1 Consent Obtained: verbal consent Indication: laceration Site: hand (Left) Size (cm): 2 Description: linear Depth: simple, single layer Anesthetic Used: lidocaine 1%, without epi Anesthesia Technique: local infiltration Amount (mls): 5 Pre-repair: wound explored, irrigated extensively, deep structures intact Type of Sutures: nylon Size of Sutures: 4-0 Number of Sutures: 3 Technique: simple, interrupted Patient Tolerated Procedure: well, no complications Medical Decision Making - Medical Decision Making X-rays negative, sutures were placed. No complication patients wound thoroughly cleaned neurovascular intact no tendon laceration wound care and return parameters were discussed Disposition Clinical Impression: Laceration of left hand Disposition: HOME SELF-CARE Condition: Stable Instructions (If sedation given, give patient instructions): Laceration (ED), Care For Your Stitches (ED) Additional Instructions: Has sutures removed in 10 days.Please return to the Emergency Department if symptoms worsen or any other concerns. Is patient prescribed a controlled substance at d/c from ED?: No Referrals: Benito Carreon DO [Primary Care Provider] - 1-2 days Time of Disposition: 14:39
== END 2019-04-08 14:45 | disposition home or self-care (01) ==
LOC: EC 12:50
DX: S61.412A Laceration without foreign body of left hand, initial encounter (principal); E07.9 Disorder of thyroid, unspecified; F17.200 Nicotine dependence, unspecified, uncomplicated; Z79.890 Hormone replacement therapy; Z88.2 Allergy status to sulfonamides; W26.0XXA Contact with knife, initial encounter; Y93.G3 Activity, cooking and baking; Y92.009 Unspecified place in unspecified non-institutional (private) residence as the place of occurrence of the external cause
CPT/HCPCS: 73130; 99283; 12001; J2001

== ENCOUNTER → 2019-08-22 | Outpatient (CLI) | payer OTHER ==
--- NOTE | 2019-08-22 14:32 | US ---
EXAMINATION TYPE: US abdomen complete DATE OF EXAM: 08/22/2019 COMPARISON: NONE CLINICAL HISTORY: R10.9 ABDOMINAL PAIN. Pain and nausea EXAM MEASUREMENTS: Liver Length: 17.2 cm Gallbladder Wall: Surgically absent cm CBD: .7 cm Spleen: 9.2 cm Right Kidney: 11.8 x 4.6 x 4.6 cm Left Kidney: 11.3 x 4.1 x 4.2 cm Pancreas: Tail obscured by overlying bowel gas Liver: wnl Gallbladder: Surgically absent Evidence for sonographic Rosas's sign: No CBD: wnl Spleen: wnl Right Kidney: wnl Left Kidney: wnl Upper IVC: wnl Abd Aorta: wnl IMPRESSION: 1. Normal abdomen ultrasound
== END | disposition home or self-care (01) ==
LOC: RADUSWWP 13:33
PROVIDERS: ATTEND Family Medicine
DX: R10.9 Unspecified abdominal pain (principal)
CPT/HCPCS: 76700

== ENCOUNTER 2020-06-27 20:24 | Emergency (ER) | payer OTHER ==
[2020-06-27] MEDS ORDERED: ASPIRIN 81 MG PO STA (20:41)
[2020-06-27] MEDS ORDERED: MORPHINE SULFATE 4 MG/ML SYRINGE IV STA (20:41)
[2020-06-27] MEDS ORDERED: SODIUM CHLORIDE 0.9% 1,000 ML IV STA (20:41)
--- NOTE | 2020-06-27 20:48 | ED ---
Chest Pain HPI - General Chief Complaint: Chest Pain Stated Complaint: Chest Pain Time Seen by Provider: 06/27/20 20:33 Source: patient, RN notes reviewed Mode of arrival: ambulatory Limitations: no limitations - History of Present Illness Initial Comments: Patient is a 24-year-old female that presents to emergency department complaining of chest pain that radiates left shoulder and left rib cage area and she notes that the pain started approximately 2 hours ago at home. She notes pain is sharp comes and goes. She also goes it's more of a charley horse that went away. She states the pain is approximately 10 out of 10 in enough to cause her to cry and be in distress while sitting in bed during exam and interview. She noted that she did try taking Tylenol. She grabbed Aleve but noted that she just can emergency room before taking it. She denied any cardiac issues minus high blood pressure which she stick medication for. She does state that her family has a significant cardiac medical history. She cannot give any specific examples during initial evaluation. She'll that she did have tenderness on the left side of her rib cage just inferior her axilla. She stated that the pain is worse with deep inspiration. She denied having any alleviating factors. She denied any shortness of breath headache nausea vomiting diarrhea constipation fever fatigue chills. - Related Data Home Medications Medication Instructions Recorded Confirmed No Known Home Medications 06/27/20 06/27/20 Allergies Allergy/AdvReac Type Severity Reaction Status Date / Time Sulfa (Sulfonamide Allergy Rash/Hives Verified 06/27/20 21:34 Antibiotics) Review of Systems ROS Statement: Those systems with pertinent positive or pertinent negative responses have been documented in the HPI. ROS Other: All systems not noted in ROS Statement are negative. Past Medical History Past Medical History: Thyroid Disorder Additional Past Medical History / Comment(s): hypothryoid; LUPUS History of Any Multi-Drug Resistant Organisms: None Reported Past Surgical History: Adenoidectomy, Cholecystectomy, Tonsillectomy Past Anesthesia/Blood Transfusion Reactions: No Reported Reaction Past Psychological History: Anxiety, Depression Smoking Status: Current every day smoker Past Alcohol Use History: Occasional Past Drug Use History: Marijuana - Past Family History Mother Additional Family Medical History / Comment(s): lung cancer father Additional Family Medical History / Comment(s): reproductive [place] General Exam Limitations: no limitations General appearance: alert, in distress, obese Head exam: Present: atraumatic, normocephalic, normal inspection Eye exam: Present: normal appearance, PERRL, EOMI. Absent: scleral icterus, conjunctival injection, periorbital swelling ENT exam: Present: normal exam, mucous membranes moist Neck exam: Present: normal inspection. Absent: tenderness, meningismus, lymphadenopathy Respiratory exam: Present: normal lung sounds bilaterally. Absent: respiratory distress, wheezes, rales, rhonchi, stridor Cardiovascular Exam: Present: regular rate, normal rhythm, normal heart sounds. Absent: systolic murmur, diastolic murmur, rubs, gallop, clicks GI/Abdominal exam: Present: soft, normal bowel sounds. Absent: distended, tenderness, guarding, rebound, rigid Extremities exam: Present: normal inspection, full ROM, normal capillary refill. Absent: tenderness, pedal edema, joint swelling, calf tenderness Back exam: Present: normal inspection Neurological exam: Present: alert, oriented X3, CN II-XII intact Psychiatric exam: Present: normal affect, normal mood Skin exam: Present: warm, dry, intact, normal color. Absent: rash Course Vital Signs 06/27/20 06/27/20 20:25 21:08 Temperature 97.6 F Pulse Rate 109 H Respiratory 20 18 Rate Blood Pressure 145/92 O2 Sat by Pulse 98 Oximetry Chest Pain MDM - MDM 24-year-old female complaining of chest pain for the past several hours or radius left shoulder and left rib cage. Labs, chest x-ray, EKG, monitoring analyst, 1 L normal saline, 4 morphine, 324 mg aspirin ordered. Chest x-ray: Heart and mediastinum are normal. Lungs are clear. Diaphragm is normal. Bony thorax is intact. Pulmonary vascularity is normal. Normal chest. No change. EKG: Ventricular rate 98 bpm, WA interval 164 ms, QRS duration 82 ms, QT/QTC 344/439 ms, PareT axes 34/16/21. Normal sinus rhythm, normal ECG. Labs unremarkable. Case discussed with Dr. Simeon, CT chest angiogram to rule out pulmonary wasn't ordered. CT chest angiogram: Negative exam. No evidence of pulmonary embolism. - Wells Criteria Clinical Symptoms of DVT: (0) No Immobilization of Surgery in Previous 4 Weeks: (0) No Previous DVT/PE: (0) No Hemoptysis: (0) No Malignancy: (0) No - PERC Rule Heart Rate < 100: (0) No g: (0) No No Prior History pf DVT/PE: (0) No No Recent Trauma or Surgery: (0) No Hemoptysis: (0) No No Clinical Signs Suggesting DVT: (0) No - SANJIV Score Age > 65: (0) No Disposition Clinical Impression: Atypical chest pain Disposition: HOME SELF-CARE Condition: Stable Instructions (If sedation given, give patient instructions): Chest Pain (ED), Costochondritis (ED) Additional Instructions: Please return to the Emergency Department if symptoms worsen or any other concerns. Follow-up primary care in 2-4 days. Take [id number] anti-inflammatories for pain and symptom control. Avoid any strenuous activity over the next several days. Keep a log/journal of aggravating factors. Is patient prescribed a controlled substance at d/c from ED?: No Referrals: Benito Carreon DO [Primary Care Provider] - 1-2 days Time of Disposition: 22:32
--- NOTE | 2020-06-27 20:57 | XR ---
EXAMINATION TYPE: XR chest 2V DATE OF EXAM: 06/27/2020 COMPARISON: 04/09/2018 HISTORY: Chest pain TECHNIQUE: 2 views FINDINGS: Heart and mediastinum are normal. Lungs are clear. Diaphragm is normal. Bony thorax is inta ct. Pulmonary vascularity is normal. IMPRESSION: Normal chest. No change.
[2020-06-27 21:04] LABS: Basophils # (A) 0.1 k/uL (0-0.2); Basophils % (A) 0 %; Eosinophils # (A) 0.1 k/uL (0-0.7); Eosinophils % (A) 1 %; HCT 42.1 % (34.0-46.0); HGB 14.6 gm/dL (11.4-16.0); Lymphocytes # (A) 4.3 k/uL (1.0-4.8); Lymphocytes % (A) 25 %; MCH 32.2 pg (25.0-35.0); MCHC 34.6 g/dL (31.0-37.0); Mean Platelet Volume 6.6; Monocytes # (A) 0.8 k/uL (0-1.0); Monocytes % (A) 5 %; Neutrophils # (A) 11.9 k/uL (1.3-7.7); Neutrophils % (A) 69 %; Platelet Count 319 k/uL (150-450); RBC 4.53 m/uL (3.80-5.40); RDW 12.5 % (11.5-15.5); WBC 17.4 k/uL (3.8-10.6)
[2020-06-27 21:07] LABS: ALT 19 U/L (4-34); AST 27 U/L (14-36); African American GFR (CKD) >90 (>60 ml/min/1.73 sqM); Albumin 4.5 g/dL (3.5-5.0); Alkaline Phosphatase 114 U/L (38-126); Anion Gap 11 mmol/L; Blood Urea Nitrogen 14 mg/dL (7-17); Calcium 9.6 mg/dL (8.4-10.2); Carbon Dioxide 25 mmol/L (22-30); Chloride 103 mmol/L (98-107); Glucose 119 mg/dL (74-99); Magnesium 1.8 mg/dL (1.6-2.3); Non-African American GFR(CKD) >90 (>60 ml/min/1.73 sqM); Sodium 139 mmol/L (137-145); Total Bilirubin 0.5 mg/dL (0.2-1.3); Total Protein 7.4 g/dL (6.3-8.2)
[2020-06-27 21:14] LABS: INR 0.9 (<1.2); Prothrombin Time 10.2 sec (9.0-12.0)
[2020-06-27 21:16] VITALS: RESP 18
[2020-06-27 21:25] LABS: Appearance,Urine Cloudy (Clear); Bilirubin,Urine Negative (Negative); Blood,Urine Negative (Negative); Color,Urine Yellow; Glucose,Urine (UA) Negative (Negative); Hyaline Casts,Urine 1 /lpf (0-2); Ketones,Urine Negative (Negative); Leukocyte Esterase,Urine Negative (Negative); Mucus,Urine Occasional /hpf; Nitrite,Urine Negative (Negative); Protein,Urine Trace (Negative); RBC,Urine 1 /hpf (0-5); Squamous Epithelial Cell,Urine 7 /hpf (0-4); Urobilinogen,Urine <2.0 mg/dL (<2.0); WBC,Urine 1 /hpf (0-5)
--- NOTE | 2020-06-27 22:29 | CT ---
EXAMINATION TYPE: CT chest angio for PE DATE OF EXAM: 06/27/2020 COMPARISON: None HISTORY: pe Short of breath CT DLP: 920.7 mGycm Automated exposure control for dose reduction was used. CONTRAST: Performed with IV Contrast, patient injected with 80 mL of Isovue 370. There are 3-D post processed images. The lungs are clear of consolidation. There is no evidence of a pulmonary mass. Heart appears slightl y enlarged. There is no pericardial effusion. There is no pleural effusion. There is no mediastinal a denopathy. There are no hilar masses. Thoracic aorta is intact. There is no evidence of aneurysm or d issection. There is no evidence of filling defect in the pulmonary arteries. Bony thorax is intact. There is no compression fracture. Sternum is intact. Upper abdominal soft tiss ues appear intact. There are clips from cholecystectomy. IMPRESSION: Negative exam. No evidence of pulmonary embolism.
[2020-06-27 22:52] VITALS: BP 120/83; PULSE 69; TEMP 98.2
== END 2020-06-27 22:46 | disposition home or self-care (01) ==
LOC: EC 20:24
DX: R07.89 Other chest pain (principal); F17.200 Nicotine dependence, unspecified, uncomplicated; F41.9 Anxiety disorder, unspecified; F32.9 Major depressive disorder, single episode, unspecified; F12.90 Cannabis use, unspecified, uncomplicated
CPT/HCPCS: 36415; 93005; 80053; 83735; 84484; 85025; 85610; 85730; 81001; 71046; 71275; 99285; 96374; 96361; J2270; Q9967

== ENCOUNTER 2020-08-22 11:58 | Emergency (ER) | payer OTHER ==
[2020-08-22 12:02] VITALS: BP 138/88; PULSE 97; RESP 16; TEMP 98.1
[2020-08-22] MEDS ORDERED: KETOROLAC 15 MG/ML 1 ML VIAL IM STA (12:10)
--- NOTE | 2020-08-22 12:33 | XR ---
EXAMINATION TYPE: XR knee complete LT DATE OF EXAM: 08/22/2020 CLINICAL HISTORY: Pain after injury. TECHNIQUE: Three views of the left knee are obtained. COMPARISON: None. FINDINGS: There is no acute fracture/dislocation evident in left knee. The tri-compartment joint sp aces appear within normal limits. Increased density suprapatellar bursa suspicious for moderate joint effusion. IMPRESSION: There is no acute fracture or dislocation in the left knee.
[2020-08-22] MEDS ORDERED: ACET/COD 300 MG/30 MG STARTER PACK 6 TAB BTL PO STA (12:37)
--- NOTE | 2020-08-22 12:54 | ED ---
General Adult HPI - General Chief complaint: Extremity Injury, Lower Stated complaint: L knee injury Time Seen by Provider: 08/22/20 12:03 Source: patient, RN notes reviewed Mode of arrival: wheelchair Limitations: no limitations - History of Present Illness Initial comments: 25 year old female presents to the emergency room for a chief of left knee inj ury. Patient was jumping on a trampoline when she fell and injured the knee. Patient states it is painful to walk on. Patient states it hurts to bend as well. Patient denies any hip or ankle pain. Denies any other injuries.Patient has no other complaints at this time including shortness of breath, chest pain, abdominal pain, nausea or vomiting, headache, or visual changes. - Related Data Home Medications Medication Instructions Recorded Confirmed Desvenlafaxine [Desvenlafaxine ER] 50 mg PO DAILY 08/22/20 08/22/20 QUEtiapine FUMARATE 50 mg PO HS 08/22/20 08/22/20 Allergies Allergy/AdvReac Type Severity Reaction Status Date / Time Sulfa (Sulfonamide Allergy Rash/Hives Verified 08/22/20 12:13 Antibiotics) Review of Systems ROS Statement: Those systems with pertinent positive or pertinent negative responses have been documented in the HPI. ROS Other: All systems not noted in ROS Statement are negative. Past Medical History Past Medical History: Thyroid Disorder Additional Past Medical History / Comment(s): hypothryoid; LUPUS History of Any Multi-Drug Resistant Organisms: None Reported Past Surgical History: Adenoidectomy, Cholecystectomy, Tonsillectomy Past Anesthesia/Blood Transfusion Reactions: No Reported Reaction Past Psychological History: Anxiety, Depression Smoking Status: Current every day smoker Past Alcohol Use History: Occasional Past Drug Use History: Marijuana - Past Family History Mother Additional Family Medical History / Comment(s): lung cancer father Additional Family Medical History / Comment(s): reproductive [place] General Exam Limitations: no limitations General appearance: alert, in no apparent distress Head exam: Present: atraumatic Eye exam: Present: normal appearance ENT exam: Present: normal exam, mucous membranes moist Neck exam: Present: normal inspection, full ROM. Absent: tenderness Respiratory exam: Present: normal lung sounds bilaterally. Absent: respiratory distress, wheezes Cardiovascular Exam: Present: regular rate, normal rhythm, normal heart sounds GI/Abdominal exam: Present: soft, normal bowel sounds. Absent: distended, tenderness Extremities exam: Present: tenderness (Mild anterior left knee tenderness.), normal capillary refill (cap refill less than 2 seconds, DP pulse 2+ left lower extremity.), other (Sensation intact left lower extremity). Absent: full ROM (Patient has about 90 flexion of the left knee, full extension), joint swelling (No swelling noted left knee), calf tenderness Course Vital Signs 08/22/20 08/22/20 11:59 13:03 Temperature 98.1 F 98.1 F Pulse Rate 97 97 Respiratory 16 16 Rate Blood Pressure 138/88 138/88 O2 Sat by Pulse 98 98 Oximetry Medical Decision Making - Medical Decision Making Vitals are stable. Patient is well-appearing. HPI and physical exam as documented. Neurovascular status intact left lower extremity. X-ray of the left knee shows no acute fracture or dislocation. There is possible moderate joint effusion. I did discuss concern for soft tissue injury. We did Corby wrap patient's knee as immobilizer was not appropriate for body habitus. Crutches were given. Patient was given referral to orthopedic surgery will follow-up on Sunday. Disposition Clinical Impression: Knee pain, left Disposition: HOME SELF-CARE Condition: Good Instructions (If sedation given, give patient instructions): Knee Pain (ED) Additional Instructions: Please take Motrin and Tylenol for pain. If pain is severe take Tylenol [address] operate machinery while taking this. Rest ice and elevate the knee. Use Corby wrap. Use crutches. Follow-up with orthopedics by calling first thing tomorrow morning for the next appointment. Return to the emergency room for any worsening symptoms. Is patient prescribed a controlled substance at d/c from ED?: No Referrals: Benito Carreon DO [Primary Care Provider] - 1-2 days Benito Flannery MD [STAFF PHYSICIAN] - 1-2 days Time of Disposition: 12:53
== END 2020-08-22 13:05 | disposition home or self-care (01) ==
LOC: EC 11:58
DX: M25.562 Pain in left knee (principal); F41.9 Anxiety disorder, unspecified; F32.9 Major depressive disorder, single episode, unspecified; F17.200 Nicotine dependence, unspecified, uncomplicated; F12.90 Cannabis use, unspecified, uncomplicated; Z88.2 Allergy status to sulfonamides; W18.30XA Fall on same level, unspecified, initial encounter; Y93.44 Activity, trampolining
CPT/HCPCS: 73562; 99283; 96372; J1885

== ENCOUNTER → 2020-10-18 | Outpatient (CLI) | payer OTHER ==
--- NOTE | 2020-10-19 04:48 | MR ---
EXAMINATION TYPE: MR knee LT wo con DATE OF EXAM: 10/18/2020 COMPARISON: None HISTORY: Left inner and outer knee pain, pain behind knee, painful kneecap, and swelling for 2 months due to accident jumping on trampoline. The planar multiecho imaging of the left knee without contrast. There is patchy increased signal on the T2 images in the proximal tibia and mostly in the posterior a spect. The posterior cruciate ligament is intact. There is obliteration of the anterior cruciate liga ment. There is mild knee joint effusion. The patella is intact. Distal femur is intact. The collateral ligaments are intact. There is small vertical tear of the posterior horn of the medial meniscus extending to the inferior surface. There is a complex horizontal and vertical tear through the posterior horn of the lateral meniscus. I see no fracture line. IMPRESSION: Complete tear anterior cruciate ligament. Complex extensive tear of the posterior horn lateral meniscus. Small vertical tear through the injection operator ior horn medial meniscus. Knee joint effusion. Large bone bruise involving the posterior proximal tibia.
== END | disposition home or self-care (01) ==
LOC: RADMRIMAIN 19:20
PROVIDERS: ATTEND Orthopaedic Surgery
DX: M23.352 Other meniscus derangements, posterior horn of lateral meniscus, left knee (principal); S83.512A Sprain of anterior cruciate ligament of left knee, initial encounter

== ENCOUNTER → 2020-11-04 | Outpatient (CLI) | payer OTHER ==
[2020-11-04 09:41] LABS: Basophils % (A) 0 %; Eosinophils # (A) 0.1 k/uL (0-0.7); Eosinophils % (A) 1 %; HCT 44.4 % (34.0-46.0); HGB 15.2 gm/dL (11.4-16.0); Lymphocytes # (A) 4.5 k/uL (1.0-4.8); Lymphocytes % (A) 32 %; MCH 32.7 pg (25.0-35.0); MCHC 34.2 g/dL (31.0-37.0); MCV 95.6 fL (80.0-100.0); Mean Platelet Volume 7.1; Monocytes # (A) 0.7 k/uL (0-1.0); Monocytes % (A) 5 %; Neutrophils # (A) 8.5 k/uL (1.3-7.7); Neutrophils % (A) 61 %; Platelet Count 347 k/uL (150-450); RBC 4.64 m/uL (3.80-5.40); RDW 12.7 % (11.5-15.5); WBC 14.1 k/uL (3.8-10.6)
[2020-11-04 09:59] LABS: Potassium 4.1 mmol/L (3.5-5.1)
== END | disposition home or self-care (01) ==
LOC: LABPAT 08:52
PROVIDERS: ATTEND Orthopaedic Surgery
DX: Z01.812 Encounter for preprocedural laboratory examination (principal); M23.92 Unspecified internal derangement of left knee
CPT/HCPCS: 80051; 85025

== ENCOUNTER 2020-11-17 13:11 | Day surgery (SDC) | payer OTHER ==
[2020-11-12 18:22] VITALS: BMI 51.3
--- NOTE | 2020-11-17 10:19 | HP ---
HISTORY AND PHYSICAL CHIEF COMPLAINT: Left knee pain. HISTORY OF PRESENT ILLNESS: The patient is a 25-year-old female who presents with left knee pain after an injury 08/22/2020 on a trampoline. She notes she twisted her knee. She has had popping and giving way ever since. She has been using crutches since the injury. PAST MEDICAL HISTORY: Significant for lupus and obesity. PAST SURGICAL HISTORY: Significant for cholecystectomy and tonsillectomy. CURRENT MEDICATIONS: Zofran. ALLERGIES: SULFA. FAMILY HISTORY: Significant cancer and diabetes. SOCIAL HISTORY: Significant for 1/2 pack per day tobacco use in addition to social alcohol use. REVIEW OF SYSTEMS: Sixteen-point review of systems is otherwise reviewed and is noncontributory. PHYSICAL EXAMINATION: On examination, the patient is approximately 5 feet 3 inches, 282 pounds of endomorphic habitus. HEENT exam is nonfocal. Neck is supple. She has painless passive motion of her left hip. Straight-leg raise is negative. Active motion of the left knee: Minus 8 to 105 degrees of flexion. She has a mild effusion. She is tender about the lateral and medial joint line. Collaterals are stable, Dexter is 1+. Mayuri's elicits medial and lateral pain. Her distal neurovascular exam appears intact in the left lower extremity. IMAGING: MRI report left knee 10/18/2020 shows evidence of ACL rupture, lateral meniscal tear, and a medial meniscal tear. There is proximal tibial edema as well. IMPRESSION: 1. Internal derangement, left knee, with medial and lateral meniscal tears. 2. Left knee ACL rupture. 3. Obesity. RECOMMENDATIONS: I talked to the patient at length regarding her condition and treatment options. At this point, she is quite symptomatic after this acute injury. After thorough discussion, she opts to proceed with surgery. We will plan to proceed with arthroscopic evaluation with possible partial medial and lateral meniscectomy. We will also consider ACL debridement as needed. At this point, we are not planning on ACL reconstruction. We will likely perform that as an outpatient procedure. Risks and benefits were discussed at length in layman's terms. MMODL / IJN: [id number] /
[~2020-11-17 13:11] MED LIST: DEXAMETHASONE SOD PHOSPHATE 4 MG/ML 1 ML VIAL IV ONE; LACTATED RINGERS 1,000 ML IV SCH; LIDOCAINE 1% (10MG/ML) FOR IV START INTRADERMA PRN; ONDANSETRON 4 MG/2 ML VIAL IVP ONE; SCOPOLAMINE 1.5MG/72HR PATCH TRANSDERM ONE; ceFAZolin 3 GM in SODIUM CHLORIDE 0.9% 100 ML IVPB PRN
[2020-11-17 13:48] VITALS: RESP 16
[2020-11-17] MEDS ORDERED: HYDROmorphone (PF) 1 MG/ML ONE (14:17)
[2020-11-17] MEDS ORDERED: GLYCOPYRROLATE 0.2 MG/ML 2 ML VIAL ONE (14:17)
[2020-11-17] MEDS ORDERED: fentaNYL (PF) 50 MCG/ML 2 ML AMP ONE (14:17)
[2020-11-17] MEDS ORDERED: PROPOFOL 10 MG/ML 20 ML VIAL IV ONE (14:17)
[2020-11-17] MEDS ORDERED: KETOROLAC 15 MG/ML 1 ML VIAL ONE (14:17)
[2020-11-17] MEDS ORDERED: LIDOCAINE 1% INJ 10MG/ML (20 ML MDV) ONE (14:17)
[2020-11-17] MEDS ORDERED: NEOSTIGMINE 1 MG/ML 10 ML VIAL ONE (14:17)
[2020-11-17] MEDS ORDERED: ROCURONIUM 10 MG/ML (5 ML VIAL) IV ONE (14:17)
[2020-11-17] MEDS ORDERED: MIDAZOLAM 2 MG/2 ML VIAL ONE (14:17)
[2020-11-17] MEDS ORDERED: SUCCINYLCHOLINE CHLORIDE 100 MG/5 ML SYR IV ONE (14:17)
[2020-11-17] MEDS ORDERED: EPINEPHrine (PF) 1 ML in SODIUM CHLORIDE 0.9% IRRIGATIO 3,000 ML IRRIGATION ONE ×4 (14:17)
--- NOTE | 2020-11-17 15:31 | P.OP ---
Date of Procedure: 11/17/20 Preoperative Diagnosis: Left knee internal derangement Postoperative Diagnosis: Left knee posterior lateral meniscal tear/ACL rupture/anterior medial meniscal tear Procedure(s) Performed: Left knee arthroscopic partial lateral meniscectomy/ACL debridement/partial medial meniscectomy Anesthesia: LEONA Surgeon: Singh Merlos Estimated Blood Loss (ml): 10 Pathology: none sent Condition: stable Disposition: PACU Indications for Procedure: The patient's a 25-year-old female who presents after a recent traumatic injury in which she twisted her left knee. Clinically she is noted of evidence of a central rupture along with lateral meniscal tear. A discussion of the risks and benefits of operative intervention versus continued conservative measures. The patient. She is quite limited having pain and mechanical symptoms that this acute injury opted to proceed with surgery. Operative risks to include infection, neurovascular injury, development of blood clots, possible persistence of symptoms/instability need for subsequent procedures was discussed. Informed consent was obtained. Operative Findings: As below Description of Procedure: The patient was brought to the operating room, and after induction of general anesthesia examined the left knee. Collaterals were stable, Dexter was 2+, and posterior drawer was negative. The left lower extremity was prepped and draped in a normal fashion. A superior lateral portal was made through a 3 mm skin incision superior and lateral to the patella. This was used for outflow. A lateral portal was made through a 5 mm vertical skin incision lateral to the patella tendon above the joint line. Diagnostic arthroscopy was performed. On inspection of the medial compartment, and anterior meniscal tear was noted in the white-white junction. This was debrided back to stable base with a motorized shaver.. The posterior horn appeared to be stable and intact.. On inspection of the notch, the anterior cruciate ligament appeared to be ruptured off its femoral attachment. This did form a cyclops lesion in the notch. This is to be a back to stable base with a motorized shaver. On inspection of the lateral compartment, a complex tearing involving the posterior horn of the lateral meniscus in the redred junction was noted. This was not amenable to repair. A portion was flipped into the posterior aspect of the notch. This to be back to stable base with straight baskets and a motorized shaver. The remaining lateral meniscus was stable and intact. On inspection of the patellofemoral articulation, no significant cartilage pathology was noted. The gutters were clear debris. The knee was then thoroughly irrigated. The portals were closed with Steri-Strips. A sterile dressing was applied in addition to a compression stocking. The patient was awoken from general anesthesia and transferred to recovery room in good condition. Blood loss was estimated at 10 mL. No complications were incurred.
[2020-11-17] MEDS: HYDROmorphone 0.5 MG/0.5 ML SYRINGE IVP PRN ×2 (15:38→16:15)
[2020-11-17 15:46] VITALS: TEMP 98
[2020-11-17] MEDS: fentaNYL (PF) 50 MCG/ML 2 ML AMP IV ONE ×2 (15:52→16:03)
[2020-11-17] MEDS ORDERED: ONDANSETRON 4 MG/2 ML VIAL ONE (16:56)
[2020-11-17] MEDS ORDERED: ONDANSETRON 4 MG/2 ML VIAL IVP ONE (17:00)
[2020-11-17 17:10] VITALS: BP 136/88; PULSE 72
== END 2020-11-17 17:30 | disposition home or self-care (01) ==
LOC: OR 13:11
PROVIDERS: ATTEND Orthopaedic Surgery
DX: S83.282A Other tear of lateral meniscus, current injury, left knee, initial encounter (principal); S83.242A Other tear of medial meniscus, current injury, left knee, initial encounter; S83.512A Sprain of anterior cruciate ligament of left knee, initial encounter; E66.9 Obesity, unspecified; F17.210 Nicotine dependence, cigarettes, uncomplicated; E07.9 Disorder of thyroid, unspecified; K21.9 Gastro-esophageal reflux disease without esophagitis; Z79.899 Other long term (current) drug therapy; Z88.2 Allergy status to sulfonamides
CPT/HCPCS: 29880; J2250; J1100; J2710; J0690; J2405; J0171; J2001; J3010; J1170 ×2; J1885; J0330; J2704

== ENCOUNTER 2021-11-18 09:26 | Emergency (ER) | payer OTHER ==
[2021-11-18 10:00] VITALS: BP 128/86; PULSE 84; RESP 18; TEMP 98
[2021-11-18] MEDS ORDERED: LIDOCAINE 1% INJ 10MG/ML (20 ML MDV) SQ ONE (10:37)
--- NOTE | 2021-11-18 10:42 | ED ---
Skin/Abscess/FB HPI - General Chief complaint: Skin/Abscess/Foreign Body Stated complaint: Lump on back Time Seen by Provider: 11/18/21 10:32 Source: patient, RN notes reviewed, old records reviewed Mode of arrival: ambulatory Limitations: no limitations - History of Present Illness Initial comments: This is a pleasant 26-year-old female that presents with complaints of painful lump to her mid back. States her boyfriend was just recently diagnosed with MRSA and had an incision and drainage done. He is currently on antibiotics. Patient has no history of MRSA. She denies any fevers, no nausea vomiting or diarrhea. MD complaint: abscess/boil Location: back Severity scale (1-10): 6 Quality: constant Consistency: constant Improves with: none Worsens with: palpation Associated symptoms: denies other symptoms Treatments Prior to Arrival: none - Related Data Home Medications Medication Instructions Recorded Confirmed Desvenlafaxine [Desvenlafaxine ER] 50 mg PO DAILY 08/22/20 11/12/20 QUEtiapine FUMARATE 50 mg PO HS 08/22/20 11/12/20 Previous Rx's Medication Instructions Recorded HYDROcodone/APAP 5-325MG [[place] 1 tab PO Q6HR PRN #21 tab 11/17/20 5-325] Cephalexin [Keflex] 500 mg PO Q6HR 7 Days #28 cap 11/18/21 Allergies Allergy/AdvReac Type Severity Reaction Status Date / Time Sulfa (Sulfonamide Allergy Rash/Hives Verified 11/18/21 10:00 Antibiotics) Review of Systems ROS Statement: Those systems with pertinent positive or pertinent negative responses have been documented in the HPI. ROS Other: All systems not noted in ROS Statement are negative. Past Medical History Past Medical History: Thyroid Disorder Additional Past Medical History / Comment(s): hypothryoid; LUPUS History of Any Multi-Drug Resistant Organisms: None Reported Past Surgical History: Adenoidectomy, Cholecystectomy, Tonsillectomy Past Anesthesia/Blood Transfusion Reactions: No Reported Reaction Past Psychological History: Anxiety, Depression Smoking Status: Current every day smoker Past Alcohol Use History: Occasional Past Drug Use History: Marijuana - Past Family History Mother Additional Family Medical History / Comment(s): lung cancer. wildebrand bleeding disorder father Additional Family Medical History / Comment(s): reproductive CA General Exam Limitations: no limitations General appearance: alert, in no apparent distress Eye exam: Present: normal appearance. Absent: periorbital swelling Respiratory exam: Absent: respiratory distress, accessory muscle use Cardiovascular Exam: Present: regular rate GI/Abdominal exam: Present: soft Extremities exam: Present: normal capillary refill Back exam: Present: full ROM, tenderness, other (Golfball sized abscess mid thoracic). Absent: paraspinal tenderness, vertebral tenderness Neurological exam: Present: alert, oriented X3, normal gait Psychiatric exam: Present: normal affect, normal mood Skin exam: Present: warm, dry, normal color. Absent: cyanosis, diaphoretic, petechiae, pallor Course Vital Signs 11/18/21 09:58 Temperature 98 F Pulse Rate 84 Respiratory 18 Rate Blood Pressure 128/86 O2 Sat by Pulse 98 Oximetry Procedures - Incision & Drainage Consent Obtained: verbal consent Site: back Anesthetic Used: lidocaine 1% I&D Cleaning Method: Betadine Sterile Field Used?: Yes Scalpel Used: #11 I&D Drainage Obtained: Blood Culture Obtained?: Yes Patient Tolerated Procedure: well Medical Decision Making - Medical Decision Making Patient presents with painful indurated erythematous abscess to her mid thoracic back. Denies any fevers, nausea vomiting or diarrhea. Incision and drainage was performed to the indurated area with no purulent drainage. Patient was instructed to use warm moist compresses 3 times a day to promote drainage, take Keflex as prescribed and Tylenol Motrin as needed for pain. Follow-up with her primary care doctor next week. Return to the emergency room with any new or concerning symptoms including fevers, increased pain or persistent nausea vomiting. She is agreeable to this plan of care. Case was discussed with Dr. Peerz. Disposition Clinical Impression: Abscess, Encounter for incision and drainage procedure Disposition: HOME SELF-CARE Condition: Good Instructions (If sedation given, give patient instructions): Abscess (ED), Abscess Incision and Drainage (DC) Additional Instructions: Use warm moist compresses to the area to promote drainage. Take antibiotics as prescribed. Tylenol and/or Motrin as needed for pain. Follow-up with the primary care doctor next week. Return to the emergency room with any new or concerning symptoms including persistent nausea vomiting or fevers. Prescriptions: Cephalexin [Keflex] 500 mg PO Q6HR 7 Days #28 cap Is patient prescribed a controlled substance at d/c from ED?: No Referrals: Benito Carreon DO [Primary Care Provider] - 1-2 days Time of Disposition: 11:01
[2021-11-18] MEDS ORDERED: IBUPROFEN 800 MG TAB PO STA (10:43)
== END 2021-11-18 11:20 | disposition home or self-care (01) ==
LOC: EC 09:26
DX: L02.212 Cutaneous abscess of back [any part, except buttock and flank] (principal); Z48.817 Encounter for surgical aftercare following surgery on the skin and subcutaneous tissue; E07.9 Disorder of thyroid, unspecified; F41.9 Anxiety disorder, unspecified; F32.A Depression, unspecified; F17.200 Nicotine dependence, unspecified, uncomplicated; F12.90 Cannabis use, unspecified, uncomplicated; Z88.2 Allergy status to sulfonamides
CPT/HCPCS: 87070; 87205; 99283; 10060; J2001

== ENCOUNTER 2021-11-19 09:13 | Observation (INO) | payer OTHER ==
[2021-11-19] MEDS ORDERED: SODIUM CHLORIDE 0.9% 1,000 ML IV STA (10:34)
[2021-11-19] MEDS ORDERED: VANCOMYCIN IV PER PHARMACY 1 EACH MISC MISCELLANE PRN (10:34)
[2021-11-19] MEDS ORDERED: MORPHINE SULFATE 4 MG/ML SYRINGE IVP STA (10:34)
[2021-11-19] MEDS ORDERED: VANCOMYCIN 2,000 MG in SODIUM CHLORIDE 0.9% 500 ML 500 ML IVPB ONE (11:00)
[2021-11-19 11:24] LABS: Basophils # (A) 0.1 k/uL (0-0.2); Basophils % (A) 0 %; Eosinophils # (A) 0.1 k/uL (0-0.7); Eosinophils % (A) 1 %; HCT 42.1 % (34.0-46.0); HGB 14.2 gm/dL (11.4-16.0); Lymphocytes # (A) 2.3 k/uL (1.0-4.8); Lymphocytes % (A) 12 %; MCH 32.1 pg (25.0-35.0); MCHC 33.6 g/dL (31.0-37.0); MCV 95.6 fL (80.0-100.0); Monocytes # (A) 0.8 k/uL (0-1.0); Monocytes % (A) 4 %; Neutrophils # (A) 16.7 k/uL (1.3-7.7); Neutrophils % (A) 83 %; Platelet Count 330 k/uL (150-450); RBC 4.41 m/uL (3.80-5.40); RDW 12.7 % (11.5-15.5); WBC 20.1 k/uL (3.8-10.6)
[2021-11-19 11:31] LABS: African American GFR (CKD) >90 (>60 ml/min/1.73 sqM); Anion Gap 10 mmol/L; Blood Urea Nitrogen 10 mg/dL (7-17); Calcium 9.3 mg/dL (8.4-10.2); Carbon Dioxide 23 mmol/L (22-30); Chloride 104 mmol/L (98-107); Glucose 107 mg/dL (74-99); Non-African American GFR(CKD) >90 (>60 ml/min/1.73 sqM); Potassium 4.3 mmol/L (3.5-5.1); Sodium 137 mmol/L (137-145)
--- NOTE | 2021-11-19 13:06 | ED ---
General Adult HPI - General Chief complaint: Skin/Abscess/Foreign Body Stated complaint: back wound Time Seen by Provider: 11/19/21 10:00 Source: patient, family, RN notes reviewed, old records reviewed Mode of arrival: ambulatory Limitations: no limitations - History of Present Illness Initial comments: Patient is a 26-year-old female with past medical history remarkable for thyroid disorder who presents emergency Department complaining of worsening back pain. Was evaluated yesterday. Appear to have an abscess on her back that was drained. Presents today for worsening concern for erythema around the site of drainage, as well as worsening pain. Denies any fevers. Denies any nausea, vomiting, diarrhea. Denies any chest pain or shortness of breath. Presents primarily for the continued pain and concern for worsening infection. Was diagnosed with cellulitis and given Keflex last night. Presents today for further evaluation. - Related Data Previous Rx's Medication Instructions Recorded Cephalexin [Keflex] 500 mg PO Q6HR 7 Days #28 cap 11/18/21 Allergies Allergy/AdvReac Type Severity Reaction Status Date / Time Sulfa (Sulfonamide Allergy Rash/Hives Verified 11/19/21 09:22 Antibiotics) Review of Systems ROS Statement: Those systems with pertinent positive or pertinent negative responses have been documented in the HPI. Review of Systems: CONST: Denies fever EYES: Denies blurry vision ENT: Denies nasal congestion C/V: Denies Chest pain RESP: Denies shortness of breath GI: Denies abdominal pain : Denies dysuria SKIN: Endorses back skin infection MSK: Denies joint pain. NEURO: Denies headache ROS Other: All systems not noted in ROS Statement are negative. Past Medical History Past Medical History: Thyroid Disorder Additional Past Medical History / Comment(s): hypothryoid; LUPUS History of Any Multi-Drug Resistant Organisms: None Reported Past Surgical History: Adenoidectomy, Cholecystectomy, Tonsillectomy Past Anesthesia/Blood Transfusion Reactions: No Reported Reaction Past Psychological History: Anxiety, Depression Smoking Status: Current every day smoker Past Alcohol Use History: Occasional Past Drug Use History: Marijuana - Past Family History Mother Additional Family Medical History / Comment(s): lung cancer. wildebrand bleeding disorder father Additional Family Medical History / Comment(s): reproductive CA General Exam - General Exam Comments Initial Comments: General: Appears in mild distress secondary to back pain. HEAD: Normal with no signs of head trauma. EYES: PERRLA, EOMI, conjunctiva normal, no discharge. ENT: Hearing grossly intact, normal oropharynx. RESPIRATORY: Clear breath sounds bilaterally. No wheezes, rales, or rhonchi. C/V: Regular rate and rhythm. S1 and S2 auscultated, no edema, peripheral pulses 2+ and intact throughout ABD: Abd is soft, nontender, nondistended EXT: Normal range of motion, no obvious deformity SKIN: Patient has an erythematous lesion located over the posterior aspect of her back in the midline. Some induration around the site. It is actively draining from the I&D from yesterday. No underlying fluctuance palpated. Bedside Ultrasound shows no obvious source of fluctuance. NEURO: Alert and oriented 4. Limitations: no limitations Course Vital Signs 11/19/21 09:20 Temperature 99 F Pulse Rate 109 H Respiratory 18 Rate Blood Pressure 160/88 O2 Sat by Pulse 98 Oximetry Medical Decision Making - Medical Decision Making Based on the patient's presentation and physical exam, I do believe she is having a cellulitis on her back. She is returning for possible worsening symptoms and pain. Bedside ultrasound did not reveal anything to drain at this time. I did recommend we obtain basic labs that she is returning at this time as well as provider at least with a dose of vancomycin. Blood cultures will be obtaining some. She was in agreement this plan. She'll be given IV pain medications. Lavatory studies were remarkable for leukocytosis of 20.1. Remainder the labs are unremarkable. Lactic acid is pending. Blood cultures are pending. I updated the patient. Due to the high white blood cell, i would like to admit to observation for IV antibiotics. She was in agreement this plan.Lactic acid within normal limits. I spoke with Dr. Phoenix who accepted the patient. - Lab Data Result diagrams: 11/19/21 10:58 11/19/21 10:58 Lab Results 11/19/21 11/19/21 11/19/21 Range/Units 10:58 10:58 12:55 WBC 20.1 H (3.8-10.6) k/uL RBC 4.41 (3.80-5.40) m/uL Hgb 14.2 (11.4-16.0) gm/dL Hct 42.1 (34.0-46.0) % MCV 95.6 (80.0-100.0) fL MCH 32.1 (25.0-35.0) pg MCHC 33.6 (31.0-37.0) g/dL RDW 12.7 (11.5-15.5) % Plt Count 330 (150-450) k/uL MPV 8.0 Neutrophils % 83 % Lymphocytes % 12 % Monocytes % 4 % Eosinophils % 1 % Basophils % 0 % Neutrophils # 16.7 H (1.3-7.7) k/uL Lymphocytes # 2.3 (1.0-4.8) k/uL Monocytes # 0.8 (0-1.0) k/uL Eosinophils # 0.1 (0-0.7) k/uL Basophils # 0.1 (0-0.2) k/uL Sodium 137 (137-145) mmol/L Potassium 4.3 (3.5-5.1) mmol/L Chloride 104 (98-107) mmol/L Carbon Dioxide 23 (22-30) mmol/L Anion Gap 10 mmol/L BUN 10 (7-17) mg/dL Creatinine 0.60 (0.52-1.04) mg/dL Est GFR (CKD-EPI)AfAm >90 (>60 ml/min/1.73 sqM) Est GFR (CKD-EPI)NonAf >90 (>60 ml/min/1.73 sqM) Glucose 107 H (74-99) mg/dL Plasma Lactic Acid Dwight 1.0 (0.7-2.0) mmol/L Calcium 9.3 (8.4-10.2) mg/dL Disposition Clinical Impression: Cellulitis Disposition: ADMITTED IP TO THIS HOSP Condition: Stable Referrals: Benito Carreon DO [Primary Care Provider] - 1-2 days Time of Disposition: 13:00
[2021-11-19] MEDS ORDERED: NALOXONE 0.4 MG/ML 1 ML VIAL IV PRN (13:24)
[2021-11-19] MEDS ORDERED: MORPHINE SULFATE 4 MG/ML SYRINGE IV PRN (13:24)
[2021-11-19] MEDS ORDERED: LIDOCAINE 1% INJ 10MG/ML (20 ML MDV) SQ ONE (15:10)
[2021-11-19] MEDS ORDERED: ONDANSETRON 4 MG/2 ML VIAL IVP PRN (15:47)
[2021-11-19] MEDS ORDERED: HYDROcodone/APAP 5-325MG 1 EACH TAB PO PRN (15:47)
[2021-11-19] MEDS ORDERED: MELATONIN 3 MG TABLET PO PRN (15:47)
[2021-11-19] MEDS ORDERED: ACETAMINOPHEN TAB 325 MG TAB PO PRN (15:47)
[2021-11-19] MEDS ORDERED: NICOTINE GUM (POLACRILEX) 2 MG GUM BUCCAL PRN (16:02)
--- NOTE | 2021-11-19 16:02 | P.HPIM ---
History of Present Illness H&P Date: 11/19/21 Patient is a 26-year-old female who presented to the ER with worsening of a known cellulitis. She had initially presented to the emergency department on 11/18/21 where she reported a history of MRSA exposure from her boyfriend. They attempted an I&D but did not have any purulent drainage. Patient was instructed to use moist compresses 3 times daily and take Keflex. Patient replies the emergency department due to worsening redness and drainage. On arrival she was tachycardic with a heart rate of 109. Laboratory analysis showed a white blood cell count 20. The area was spontaneously draining. She was given a dose of vancomycin. Arrangements were made for observation secondary to her sepsis. Patient seen and examined at bedside. She reports that approximately 7 days ago she noticed the swelling starting on her back. It was red and warm. Her boyfriend had just been diagnosed with MRSA. He continued to get worse. She represented to the ER today secondary to worsening pain. She states she has been having some rigors at home but did not check her fever. Reports aching in multiple joints. She is also been having some nausea but no vomiting. She has a history of lupus but does not take any disease modifying drugs. Pertinent positives and negatives as discussed in HPI, a complete review of systems was performed and all other systems are negative. Vital signs reviewed General: nontoxic, no distress, appears at stated age Derm: 5 x 5 cm area of redness with fluctuance, warmth between the left infrascapular border and midline. Head: atraumatic, normocephalic, symmetric Eyes: EOMI, no lid lag, anicteric sclera, pupils equal round reactive to light ENT: Nose and ears atraumatic, no thrush, no pharyngeal erythema Neck: No thyromegaly, no cervical lymphadenopathy, trachea midline, supple Mouth: no lip lesion, mucus membranes moist Cardiovascular: S1S2 reg, no murmur, positive posterior tibial pulse bilateral, no edema, capillary refill less than 2 seconds Lungs: clear to auscultation bilateral, no rhonchi, no rales, no wheeze, no accessory muscle use Abdominal: soft, nontender to palpation, no guarding, no appreciable organomegaly, normal bowel sounds Ext: no gross muscle atrophy, muscle strength intact, no contractures Neuro: CN II-XII grossly intact, no focal neuro deficits Psych: Alert, oriented, appropriate affect Assessment/Plan: Back abscess with surrounding cellulitis and sepsis -Failed outpatient treatment -Continue with Vancomycin -Await cultures that were obtained on 11/18 -Pain control -IV fluids -Patient has a sulfa ALLERGY and will anticipate discharge home on doxycycline. Tobacco abuse -Cessation -Nicotine replacement Morbid obesity with BMI 50.1 -Outpatient structured weight loss Prediabetes -Continue outpatient follow-up Procedure: I&D was performed of back abscess. Patient was administered 2 mL of 1% lidocaine subcutaneous. Approximate 2.5 cm incision was made with return of copious amounts of bloody purulent material. A loose dressing was applied. Nursing was given instructions to clean with saline again in a few hours to ensure it continues to drain. Patient reports improvement in pain immediately after I&D performed. The patient is admitted with an anticipated less than 2 midnight stay for evaluation of abscess with sepsis DVT prophylaxis: Early ambulation Discussed with: Patient, significant other Anticipated discharge date: in AM Anticipated discharge place: home A total of 45 minutes was spent on the care of this complex patient more than 50% of the time was spent in counseling and care coordination. Past Medical History Past Medical History: Thyroid Disorder Additional Past Medical History / Comment(s): hypothryoid; LUPUS History of Any Multi-Drug Resistant Organisms: None Reported Past Surgical History: Adenoidectomy, Cholecystectomy, Tonsillectomy Additional Past Surgical History / Comment(s): knee surgery Past Anesthesia/Blood Transfusion Reactions: No Reported Reaction Past Psychological History: Anxiety, Depression Smoking Status: Current every day smoker Past Alcohol Use History: Occasional Past Drug Use History: Marijuana - Past Family History Mother Additional Family Medical History / Comment(s): lung cancer. Von Willebrand bleeding disorder. Heart disease father Additional Family Medical History / Comment(s): reproductive CA Medications and Allergies Home Medications Medication Instructions Recorded Confirmed Type Cephalexin [Keflex] 500 mg PO Q6H 11/19/21 11/19/21 History Allergies Allergy/AdvReac Type Severity Reaction Status Date / Time Sulfa (Sulfonamide Allergy Rash/Hives Verified 11/19/21 15:02 Antibiotics) Physical Exam Osteopathic Statement: *. No significant issues noted on an osteopathic structural exam other than those noted in the History and Physical/Consult. Vitals: Vital Signs Temp Pulse Resp BP Pulse Ox 11/19/21 09:20 99 F 109 H 18 160/88 98 Intake and Output 11/19/21 11/19/21 11/19/21 06:59 14:59 22:59 Other: Weight 128.367 kg Results CBC & Chem 7: 11/19/21 10:58 11/19/21 10:58 Labs: Abnormal Lab Results - Last 24 Hours (Table) 11/19/21 11/19/21 Range/Units 10:58 10:58 WBC 20.1 H (3.8-10.6) k/uL Neutrophils # 16.7 H (1.3-7.7) k/uL Glucose 107 H (74-99) mg/dL
[2021-11-19] MEDS: SODIUM CHLORIDE 0.9% 1,000 ML IV SCH (16:50)
[2021-11-19] MEDS: HEPARIN SODIUM,PORCINE/PF 5,000 UNIT/0.5 ML SYRINGE SQ SCH ×2 (17:04→23:16)
[2021-11-19] MEDS: VANCOMYCIN 2,000 MG in SODIUM CHLORIDE 0.9% 500 ML 500 ML IVPB SCH (18:04)
[2021-11-19] MEDS ORDERED: QUEtiapine 50 MG TAB PO SCH (21:00)
[2021-11-19] MEDS: KETOROLAC 15 MG/ML 1 ML VIAL IVP PRN (22:36)
[2021-11-20] MEDS: VANCOMYCIN 2,000 MG in SODIUM CHLORIDE 0.9% 500 ML 500 ML IVPB SCH (03:54)
[2021-11-20] MEDS: SODIUM CHLORIDE 0.9% 1,000 ML IV SCH (05:46)
[2021-11-20 06:08] LABS: MCH 31.6 pg (25.0-35.0); MCHC 32.5 g/dL (31.0-37.0); MCV 97.2 fL (80.0-100.0); Mean Platelet Volume 7.4; Platelet Count 313 k/uL (150-450); RBC 4.11 m/uL (3.80-5.40); RDW 12.8 % (11.5-15.5)
[2021-11-20 06:23] LABS: African American GFR (CKD) >90 (>60 ml/min/1.73 sqM); Anion Gap 10 mmol/L; Blood Urea Nitrogen 11 mg/dL (7-17); Calcium 8.6 mg/dL (8.4-10.2); Carbon Dioxide 24 mmol/L (22-30); Chloride 103 mmol/L (98-107); Glucose 106 mg/dL (74-99); Non-African American GFR(CKD) >90 (>60 ml/min/1.73 sqM); Potassium 4.5 mmol/L (3.5-5.1); Sodium 137 mmol/L (137-145)
[2021-11-20] MEDS: KETOROLAC 15 MG/ML 1 ML VIAL IVP PRN (08:02)
[2021-11-20 08:58] VITALS: BP 167/79; PULSE 73; RESP 18; TEMP 98.1
[2021-11-20] MEDS ORDERED: DESVENLAFAXINE SUCCINATE 50 MG TAB.ER.24H PO SCH (09:00)
[2021-11-20] MEDS: HEPARIN SODIUM,PORCINE/PF 5,000 UNIT/0.5 ML SYRINGE SQ SCH (09:19)
--- NOTE | 2021-11-20 09:23 | P.DS ---
Providers Date of admission: 11/19/21 13:25 Expected date of discharge: 11/20/21 Attending physician: Soraida Phoenix MD Primary care physician: Benito Carreon [facility] Course: Discharge Diagnosis: Back abscess with surrounding cellulitis and sepsis Tobacco abuse Morbid obesity with BMI 50.1 Prediabetes Hospital Course: Patient is a 26-year-old female who presented to the ER with worsening of a known cellulitis. She had initially presented to the emergency department on 11/18/21 where she reported a history of MRSA exposure from her boyfriend. They attempted an I&D but did not have any purulent drainage. Patient was instructed to use moist compresses 3 times daily and take Keflex. Patient replies the emergency department due to worsening redness and drainage. On arrival she was tachycardic with a heart rate of 109. Laboratory analysis showed a white blood cell count 20. The area was spontaneously draining. She was given a dose of vancomycin. Arrangements were made for observation secondary to her sepsis. Her abscess was reincised and drained on 11/19. She did well, pain was much improved. Her WBC impoved. She was determined stable for discharge. Final culture pending. Presumptive is staph aureus. Follow-up: Dr. Carreon in 2-3 days. Doxy for 7 days. Motrin 800 as needed for pain. Patient seen and examined at bedside. Having some abd cramping but started her period. No diarrhea, no vausea, still with some back pain, much improved from on admission. Vital signs reviewed and stable. General: nontoxic, no distress, appears at stated age Derm: warm, dry, incised area on left back without erythema or warmth, conitnues to have purulent drainage. Head: atraumatic, normocephalic, symmetric Eyes: EOMI, no lid lag, anicteric sclera Mouth: no lip lesion, mucus membranes moist Cardiovascular: S1S2 reg, no murmur, positive posterior tibial pulse bilateral, Lungs: CTA bilateral, no rhonchi, no rales , no accessory muscle use Abdominal: soft, nontender to palpation, no guarding, no appreciable organomegaly Ext: no gross muscle atrophy, no edema, no contractures Neuro: CN II-XI grossly intact, no focal neuro deficits Psych: Alert, oriented, appropriate affect A total of 25 minutes of time were spent preparing this complex discharge summary. Patient was discharged on 11/20/21. Patient Condition at Discharge: Stable Plan - Discharge Summary Discharge Rx Participant: Yes New Discharge Prescriptions: New Ibuprofen [Motrin] 800 mg PO Q8H PRN #30 tab PRN Reason: Pain Doxycycline [Vibramycin] 100 mg PO BID #14 cap Discontinued Cephalexin [Keflex] 500 mg PO Q6H Discharge Medication List Doxycycline [Vibramycin] 100 mg PO BID #14 cap 11/20/21 [Rx] Ibuprofen [Motrin] 800 mg PO Q8H PRN #30 tab 11/20/21 [Rx] Follow up Appointment(s)/Referral(s): Benito Carreon DO [Primary Care Provider] - 1-2 days Activity/Diet/Wound Care/Special Instructions: Activity: as tolerated Diet: Regular Wound Care: Clean the wound this evening at tomorrow morning. Continue to try to express the pus. Discharge Disposition: HOME SELF-CARE
[2021-11-20] MEDS ORDERED: SIMETHICONE 80 MG CHEWABLE PO SCH (09:30)
[2021-11-20] MEDS ORDERED: VANCOMYCIN TROUGH DUE 1 EACH MISC MISCELLANE ONE (18:00)
== END 2021-11-20 09:55 | disposition home or self-care (01) ==
LOC: EC 09:13 → 6NMEDSUR 13:25
PROVIDERS: ADMIT Family Medicine; ATTEND Family Medicine
DX: L02.212 Cutaneous abscess of back [any part, except buttock and flank] (principal); A41.9 Sepsis, unspecified organism; L03.312 Cellulitis of back [any part except buttock and flank]; E03.9 Hypothyroidism, unspecified; F32.A Depression, unspecified; F41.9 Anxiety disorder, unspecified; R73.03 Prediabetes; F17.200 Nicotine dependence, unspecified, uncomplicated; E66.01 Morbid (severe) obesity due to excess calories; Z68.43 Body mass index [BMI] 50.0-59.9, adult; Z20.818 Contact with and (suspected) exposure to other bacterial communicable diseases; Z88.2 Allergy status to sulfonamides; Z90.49 Acquired absence of other specified parts of digestive tract; Z98.890 Other specified postprocedural states; Z80.1 Family history of malignant neoplasm of trachea, bronchus and lung; Z83.2 Family history of diseases of the blood and blood-forming organs and certain disorders involving the immune mechanism; Z80.49 Family history of malignant neoplasm of other genital organs
CPT/HCPCS: 96376 ×2; 96366 ×3; 96375 ×2; 96365; 99284; 36415; 80048 ×2; 83605; 85025; 85027; 87040; 10060; G0378 ×2; J3370 ×2; J2270; J2001; J1885 ×2

== ENCOUNTER 2022-02-10 22:56 | Emergency (ER) | payer OTHER ==
[2022-02-11] MEDS ORDERED: predniSONE 50 MG TAB PO STA (00:52)
[2022-02-11] MEDS ORDERED: OSELTAMIVIR 75 MG CAP PO STA (00:52)
[2022-02-11] MEDS ORDERED: IPRATROPIUM-ALBUTEROL 3 ML NEB INHALATION STA (00:52)
--- NOTE | 2022-02-11 01:36 | ED ---
URI HPI - General Chief Complaint: Upper Respiratory Infection Stated Complaint: cough, congestion Time Seen by Provider: 02/10/22 23:39 Source: patient, RN notes reviewed Mode of arrival: ambulatory Limitations: no limitations - History of Present Illness Initial Comments: This is a 26-year-old female who presents to the emergency department for 2 days of coughing, congestion, and body aches. She is here with her boyfriend who has been sick for one week. Denies any fevers. She does not have a history of asthma or other respiratory illnesses. She does feel like it is hard to catch her breath since getting ill. She has not tried any [id number] medication to treat her symptoms. Denies any fevers, chills, sore throat, chest pain, palpitations, abdominal pain, nausea, vomiting, diarrhea, back pain, or headaches. MD Complaint: cough, sore throat, nasal congestion Onset/Timin -: days(s) - Related Data Previous Rx's Medication Instructions Recorded Doxycycline [Vibramycin] 100 mg PO BID #14 cap 11/20/21 Ibuprofen [Motrin] 800 mg PO Q8H PRN #30 tab 11/20/21 Albuterol Sulfate [Albuterol 1 puff PO Q4-6H PRN #8.5 gm 02/11/22 Sulfate Hfa] Oseltamivir Phosphate 75 mg PO BID 5 Days #10 capsule 02/11/22 Promethazine/Dextromethorphan 5 ml PO Q4-6H PRN #473 ml 02/11/22 [Promethazine-Dm Syrup] predniSONE 50 mg PO DAILY 5 Days #5 tablet 02/11/22 Allergies Allergy/AdvReac Type Severity Reaction Status Date / Time Sulfa (Sulfonamide Allergy Rash/Hives Verified 02/10/22 23:34 Antibiotics) Review of Systems ROS Statement: Those systems with pertinent positive or pertinent negative responses have been documented in the HPI. ROS Other: All systems not noted in ROS Statement are negative. Past Medical History Past Medical History: Thyroid Disorder Additional Past Medical History / Comment(s): hypothryoid; LUPUS History of Any Multi-Drug Resistant Organisms: MRSA Date of last positivie culture/infection: 11/18/21 MDRO Source:: Back Past Surgical History: Adenoidectomy, Cholecystectomy, Tonsillectomy Additional Past Surgical History / Comment(s): knee surgery Past Anesthesia/Blood Transfusion Reactions: No Reported Reaction Past Psychological History: Anxiety, Depression Smoking Status: Current every day smoker Past Alcohol Use History: Occasional Past Drug Use History: Marijuana - Past Family History Mother Additional Family Medical History / Comment(s): lung cancer. Von Willebrand bleeding disorder. Heart disease father Additional Family Medical History / Comment(s): reproductive CA General Exam Limitations: no limitations General appearance: alert, in no apparent distress Head exam: Present: atraumatic, normocephalic, normal inspection ENT exam: Present: normal exam, normal oropharynx, mucous membranes moist, TM's normal bilaterally, normal external ear exam Respiratory exam: Present: normal lung sounds bilaterally. Absent: respiratory distress, wheezes, rales, rhonchi, stridor Cardiovascular Exam: Present: regular rate, normal rhythm, normal heart sounds. Absent: systolic murmur, diastolic murmur, rubs, gallop, clicks Neurological exam: Present: alert, oriented X3, CN II-XII intact Psychiatric exam: Present: normal affect, normal mood Skin exam: Present: warm, dry, intact, normal color. Absent: rash Course Vital Signs 02/10/22 02/10/22 02/11/22 23:29 23:55 01:26 Temperature 98.0 F 98.6 F Pulse Rate 91 80 80 Respiratory 24 16 Rate Blood Pressure 111/73 141/59 O2 Sat by Pulse 99 97 Oximetry 02/11/22 02/11/22 01:35 01:51 Temperature 98.1 F Pulse Rate 84 78 Respiratory 18 Rate Blood Pressure 130/68 O2 Sat by Pulse 98 Oximetry Medical Decision Making - Medical Decision Making This is a 26-year-old female who presents to the emergency department for coughing and congestion. Patient is positive for influenza A. She was given a DuoNeb breathing treatment in the emergency department which she states was very beneficial. Given that symptoms have been present for less than 72 hours, prescription for Tamiflu was provided. Additionally she was given a prescription for prednisone, promethazine DM cough syrup, and an albuterol inhaler. She was given a dose of Tamiflu and prednisone in the emergency department, as the pharmacies were closed at the time she was here. Instructed her to take the cough syrup at night until she knows how it effects her, as it can be sedating. Also instructed her to avoid driving or operating machinery when taking this. Advised that she remain well-hydrated and get plenty of rest as well. Return precautions reviewed in depth, the patient is instructed to return to the emergency department with any new, worsening, or concerning symptoms. Patient verbalized understanding. This case was discussed in detail with the attending ED physician. Presentation, findings, and treatment plan discussed in detail as well. - Lab Data Lab Results 02/11/22 02/11/22 Range/Units 00:04 00:04 Coronavirus (PCR) Not Detected (Not Detectd) Influenza Type A RNA Detected H (Not Detectd) Influenza Type B (PCR) Not Detected (Not Detectd) Disposition Clinical Impression: Influenza A Disposition: HOME SELF-CARE Instructions (If sedation given, give patient instructions): Influenza (ED) Additional Instructions: Return to the emergency department with any new, worsening, or concerning symptoms. Take the prednisone daily for 5 days and the Tamiflu twice daily for 5 days. The cough medication can be taken every 4-6 hours as needed. This can be sedating and you should avoid driving or operating machinery when taking this. The albuterol inhaler can be used every 4-6 hours as needed for coughing and shortness of breath. Make sure that you are remaining well-hydrated and getting plenty of rest. Follow up with your primary care provider in 1-2 days. Prescriptions: Albuterol Sulfate [Albuterol Sulfate Hfa] 1 puff PO Q4-6H PRN #8.5 gm PRN Reason: Shortness Of Breath Oseltamivir Phosphate 75 mg PO BID 5 Days #10 capsule predniSONE 50 mg PO DAILY 5 Days #5 tablet Promethazine/Dextromethorphan [Promethazine-Dm Syrup] 5 ml PO Q4-6H PRN #473 ml PRN Reason: Cough Is patient prescribed a controlled substance at d/c from ED?: No Referrals: Benito Carreon DO [Primary Care Provider] - 1-2 days
[2022-02-11 01:52] VITALS: BP 130/68; PULSE 78; RESP 18; TEMP 98.1
[2022-02-11] MEDS ORDERED: MORPHINE SULFATE 2 MG/ML SYRINGE IVP STA (01:56)
== END 2022-02-11 01:51 | disposition home or self-care (01) ==
LOC: EC 22:56
DX: J10.1 Influenza due to other identified influenza virus with other respiratory manifestations (principal); F41.9 Anxiety disorder, unspecified; F32.A Depression, unspecified; F17.200 Nicotine dependence, unspecified, uncomplicated; F12.90 Cannabis use, unspecified, uncomplicated; Z88.2 Allergy status to sulfonamides; Z20.822 Contact with and (suspected) exposure to COVID-19
CPT/HCPCS: 94640; 87502; 87635; 99283; J7512

== ENCOUNTER → 2022-06-05 | Outpatient (CLI) | payer OTHER ==
--- NOTE | 2022-06-05 13:22 | XR ---
EXAMINATION TYPE: XR cervical spine comp DATE OF EXAM: 06/05/2022 COMPARISON: NONE HISTORY: Pain TECHNIQUE: Four views are submitted. FINDINGS: The odontoid is intact. There are no compression deformities. The prevertebral soft tissue structur es are within normal limits. Slight anterior listhesis of C2 on C3 and C3 on C4. Loss of the normal cervical lordosis. IMPRESSION: 1. Slight anterolisthesis of C2 relative to C3 and C3 relative to C4. Consider follow-up MRI.
== END | disposition home or self-care (01) ==
LOC: RADXRMAIN 12:26
PROVIDERS: ATTEND Nurse Practitioner Family
DX: M43.12 Spondylolisthesis, cervical region (principal); M54.12 Radiculopathy, cervical region
CPT/HCPCS: 72050

== ENCOUNTER → 2022-12-11 | Outpatient (CLI) | payer OTHER ==
--- NOTE | 2022-12-11 10:29 | XR ---
EXAMINATION TYPE: XR thoracic spine complete DATE OF EXAM: 12/11/2022 COMPARISON: NONE HISTORY: Pain TECHNIQUE: 3 views submitted FINDINGS: Alignment is anatomic. There is no compression deformities. Multilevel hypertrophic and degenerative changes in the spine most marked near the thoracolumbar junction. Surgical clips in the abdomen. IMPRESSION: 1. Multilevel hypertrophic and degenerative changes spine with most marked findings near the thoracol umbar junction.
== END | disposition home or self-care (01) ==
LOC: RADXRMAIN 10:12
PROVIDERS: ATTEND Nurse Practitioner Family
DX: M40.204 Unspecified kyphosis, thoracic region (principal); M51.35 Other intervertebral disc degeneration, thoracolumbar region
CPT/HCPCS: 72072

== ENCOUNTER 2022-12-20 08:49 | Emergency (ER) | payer OTHER ==
[2022-12-20 09:10] VITALS: BP 139/99; PULSE 117; RESP 18; TEMP 98.2
--- NOTE | 2022-12-20 09:17 | ED ---
General Adult HPI - General Chief complaint: Neuro Symptoms/Deficit Stated complaint: face numb on left side Time Seen by Provider: 12/20/22 08:57 Source: patient, RN notes reviewed, old records reviewed Mode of arrival: ambulatory Limitations: no limitations - History of Present Illness Initial comments: 27-year-old female with numbness to the left side of the face predominantly the forehead after abscess was drained at outside hospital yesterday. Patient had a minor abscess on the left upper forehead drained and she woke with numbness surrounding the abscess today. She also noted some increased swelling around her eye. She was started on doxycycline and instructed to apply warm compresses. - Related Data Previous Rx's Medication Instructions Recorded Doxycycline [Vibramycin] 100 mg PO BID #14 cap 11/20/21 Ibuprofen [Motrin] 800 mg PO Q8H PRN #30 tab 11/20/21 Albuterol Sulfate [Albuterol 1 puff PO Q4-6H PRN #8.5 gm 02/11/22 Sulfate Hfa] Oseltamivir Phosphate 75 mg PO BID 5 Days #10 capsule 02/11/22 Promethazine/Dextromethorphan 5 ml PO Q4-6H PRN #473 ml 02/11/22 [Promethazine-Dm Syrup] predniSONE 50 mg PO DAILY 5 Days #5 tablet 02/11/22 Allergies Allergy/AdvReac Type Severity Reaction Status Date / Time Sulfa (Sulfonamide Allergy Rash/Hives Verified 12/20/22 08:54 Antibiotics) Review of Systems ROS Statement: Those systems with pertinent positive or pertinent negative responses have been documented in the HPI. ROS Other: All systems not noted in ROS Statement are negative. Past Medical History Past Medical History: Thyroid Disorder Additional Past Medical History / Comment(s): hypothryoid; LUPUS History of Any Multi-Drug Resistant Organisms: MRSA Date of last positivie culture/infection: 12/20/2022 MDRO Source:: face Past Surgical History: Adenoidectomy, Cholecystectomy, Tonsillectomy Additional Past Surgical History / Comment(s): knee surgery Past Anesthesia/Blood Transfusion Reactions: No Reported Reaction Past Psychological History: Anxiety, Depression Smoking Status: Current every day smoker Past Alcohol Use History: Occasional Past Drug Use History: Marijuana - Past Family History Mother Additional Family Medical History / Comment(s): lung cancer. Von Willebrand bleeding disorder. Heart disease father Additional Family Medical History / Comment(s): reproductive CA General Exam Limitations: no limitations General appearance: alert, in no apparent distress Head exam: Present: atraumatic, normocephalic Eye exam: Present: periorbital swelling (Nonerythematous, nonindurated soft tissue swelling around the left eye) ENT exam: Present: other (There is a freely draining 1 cm abscess on the left forehead. There is no facial palsy is able to elevate both eyebrows, able to smile with a symmetric smile, ) Respiratory exam: Present: normal lung sounds bilaterally. Absent: respiratory distress, wheezes Cardiovascular Exam: Present: regular rate, normal rhythm GI/Abdominal exam: Present: soft. Absent: distended, tenderness Back exam: Present: normal inspection Neurological exam: Present: alert, oriented X3, CN II-XII intact. Absent: motor sensory deficit (There is no facial asymmetry, there is mild soft tissue swelling around the left eye which is non-erythematous nonindurated. The abscess is freely draining. There is some numbness to the surrounding tissue.) Psychiatric exam: Present: anxious Skin exam: Present: warm Course Vital Signs 12/20/22 08:51 Temperature 98.2 F Pulse Rate 117 H Respiratory 18 Rate Blood Pressure 139/99 O2 Sat by Pulse 97 Oximetry Medical Decision Making - Medical Decision Making Was pt. sent in by a medical professional or institution (PHONG Velazquez, PHOTOENGRAVER, urgent care, hospital, or fdc...) When possible be specific @ -No Did you speak to anyone other than the patient for history (EMS, parent, family, police, friend...)? What history was obtained from this source @ -No Did you review nursing and triage notes (agree or disagree)? Why? @ -I reviewed and agree with nursing and triage notes Were old charts reviewed (outside hosp., previous admission, EMS record, old EKG, old radiological studies, urgent care reports/EKG's, fdc records)? Report findings @ -No old charts were reviewed Differential Diagnosis (chest pain, altered mental status, abdominal pain women, abdominal pain men, vaginal bleeding, weakness, fever, dyspnea, syncope, headache, dizziness, GI bleed, back pain, seizure, CVA, palpatations, mental health, musculoskeletal)? @ -Cruz's palsy, CVA, peripheral nerve injury, postprocedural paresthesia EKG interpreted by me (3pts min.). @ -As above X-rays interpreted by me (1pt min.). @ -None done CT interpreted by me (1pt min.). @ -None done U/S interpreted by me (1pt. min.). @ -None done What testing was considered but not performed or refused? (CT, X-rays, U/S, labs)? Why? @ -None What meds were considered but not given or refused? Why? @ -None Did you discuss the management of the patient with other professionals (professionals i.e. DrRobert, PA, PHOTOENGRAVER, lab, RT, psych nurse, social media content specialist, emanations analysis technician, teacher, community resource officer, welfare case worker)? Give summary @ -No Was smoking cessation discussed for >3mins.? @ -No Was critical care preformed (if so, how long)? @ -No Were there social determinants of health that impacted care today? How? (Homelessness, low income, unemployed, alcoholism, drug addiction, transportation, low edu. Level, literacy, decrease access to med. care, alf, rehab)? @ -No Was there de-escalation of care discussed even if they declined (Discuss DNR or withdrawal of care, Hospice)? DNR status @ -No] What co-morbidities impacted this encounter? (DM, HTN, Smoking, COPD, CAD, Cancer, CVA, ARF, Chemo, Hep., AIDS, mental health diagnosis, sleep apnea, mo rbid obesity)? @ -[None] Was patient admitted / discharged? Hospital course, mention meds given and route, prescriptions, significant lab abnormalities, going to OR and other pertinent info. @ -2-year-old female with incision and drainage of abscess on the left forehead with associated numbness and paresthesia. Patient has no weakness. There is some numbness surrounding the area. She has normal facial symmetry. She is afebrile. She is on doxycycline which is appropriate antibiotics at this time. She is instructed to apply warm compresses and to rest. She's given strict return parameters including any fever, vomiting, worsening signs of infection or facial weakness. Undiagnosed new problem with uncertain prognosis? @ -[No] Drug Therapy requiring intensive monitoring for toxicity (Heparin, Nitro, Insulin, Cardizem)? @ -[No] Were any procedures done? @ -[No] Diagnosis/symptom? @ -Facial abscess status post incision and drainage with paresthesia and mild fascial inflammation Acute, or Chronic, or Acute on Chronic? @Acute Uncomplicated (without systemic symptoms) or Complicated (systemic symptoms)? @ -[default] Side effects of treatment? @ -[No] Exacerbation, Progression, or Severe Exacerbation? @ -[No] Poses a threat to life or bodily function? How? (Chest pain, [place], [place], pneumonia, PE, COPD, DKA, ARF, appy, cholecystitis, CVA, Diverticulitis, Homicidal, Suicidal, threat to staff... and all critical care pts) @ -[No] Disposition Clinical Impression: Facial paresthesia, Facial abscess Disposition: HOME SELF-CARE Condition: Good Instructions (If sedation given, give patient instructions): Abscess (ED), Paresthesia (ED) Additional Instructions: Please apply warm compresses, please take antibiotics as prescribed, please follow up with her primary care physician and return with worsening or changing symptoms. Is patient prescribed a controlled substance at d/c from ED?: No Referrals: Benito Carreon DO [Primary Care Provider] - 1-2 days Time of Disposition: 09:17
== END 2022-12-20 09:24 | disposition home or self-care (01) ==
LOC: EC 08:49
DX: L02.01 Cutaneous abscess of face (principal); F17.200 Nicotine dependence, unspecified, uncomplicated; F12.90 Cannabis use, unspecified, uncomplicated; Z88.2 Allergy status to sulfonamides; Z86.59 Personal history of other mental and behavioral disorders; Z88.1 Allergy status to other antibiotic agents; Z90.49 Acquired absence of other specified parts of digestive tract
CPT/HCPCS: 99283

== ENCOUNTER → 2023-01-04 | Outpatient (CLI) | payer OTHER ==
--- NOTE | 2023-01-10 10:19 | HM ---
HOLTER MONITOR REPORT The patient was monitored for 72 hours. CLINICAL INFORMATION: Baseline rhythm is a sinus mechanism with normal conduction. The average rate is 72 beats per minute, minimum 44, maximum 145 beats per minute. Ventricular ectopic activity was present in the form of rare single PVCs. No supraventricular ectopic activity was noted. Symptoms of chest heaviness, sharp pain, chest pain, trouble breathing did not correlate with any dysrhythmia. CONCLUSION: 1. Sinus mechanism baseline rhythm. 2. Rare ventricular ectopic activity. 3. No supraventricular ectopic activity. 4. Symptoms did not correlate with any dysrhythmia. MMODL / IJN: [id number] /
== END | disposition home or self-care (01) ==
LOC: RADECHMAIN 07:55
PROVIDERS: ATTEND Family Medicine
DX: I49.3 Ventricular premature depolarization (principal); R03.0 Elevated blood-pressure reading, without diagnosis of hypertension
CPT/HCPCS: 93225; 93226

== ENCOUNTER 2023-09-19 01:51 | Emergency (ER) | payer OTHER ==
[2023-09-19 01:55] VITALS: RESP 18
[2023-09-19] MEDS: LIDOCAINE 1% INJ 10MG/ML (20 ML MDV) SQ ONE (02:58)
--- NOTE | 2023-09-19 03:33 | ED ---
Skin/Abscess/FB HPI - General Chief complaint: Skin/Abscess/Foreign Body Stated complaint: Abscess on back Time Seen by Provider: 09/19/23 03:30 Source: patient, RN notes reviewed Mode of arrival: ambulatory Limitations: no limitations - History of Present Illness Initial comments: 28-year-old female presented to the ER with a chief complaint of back abscess. Patient states she noticed it yesterday as a small bump and today has grown to the size of a golf ball. She states it is extremely painful. She does not report a history of abscesses in the past. Does have a history of MRSA. She denies any fevers, chills, nausea, vomiting, chest pain, shortness of breath, abdominal pain or peripheral edema. - Related Data Previous Rx's Medication Instructions Recorded Doxycycline [Vibramycin] 100 mg PO BID #14 cap 11/20/21 Ibuprofen [Motrin] 800 mg PO Q8H PRN #30 tab 11/20/21 Albuterol Sulfate [Albuterol 1 puff PO Q4-6H PRN #8.5 gm 02/11/22 Sulfate Hfa] Oseltamivir Phosphate 75 mg PO BID 5 Days #10 capsule 02/11/22 Promethazine/Dextromethorphan 5 ml PO Q4-6H PRN #473 ml 02/11/22 [Promethazine-Dm Syrup] predniSONE 50 mg PO DAILY 5 Days #5 tablet 02/11/22 clindamycin HCL [Cleocin] 300 mg PO Q8H 7 Days #21 cap 09/19/23 Allergies Allergy/AdvReac Type Severity Reaction Status Date / Time Sulfa (Sulfonamide Allergy Rash/Hives Verified 09/19/23 01:55 Antibiotics) Review of Systems ROS Statement: Those systems with pertinent positive or pertinent negative responses have been documented in the HPI. ROS Other: All systems not noted in ROS Statement are negative. Past Medical History Past Medical History: Thyroid Disorder Additional Past Medical History / Comment(s): hypothryoid; LUPUS History of Any Multi-Drug Resistant Organisms: MRSA Date of last positivie culture/infection: 12/20/2022 MDRO Source:: face Past Surgical History: Adenoidectomy, Cholecystectomy, Tonsillectomy Additional Past Surgical History / Comment(s): knee surgery Past Anesthesia/Blood Transfusion Reactions: No Reported Reaction Past Psychological History: Anxiety, Depression Smoking Status: Current every day smoker Past Alcohol Use History: Occasional Past Drug Use History: Marijuana - Past Family History Mother Additional Family Medical History / Comment(s): lung cancer. Von Willebrand bleeding disorder. Heart disease father Additional Family Medical History / Comment(s): reproductive CA General Exam Limitations: no limitations General appearance: alert, in no apparent distress Respiratory exam: Present: normal lung sounds bilaterally. Absent: respiratory distress, wheezes, rales, rhonchi, stridor Cardiovascular Exam: Present: regular rate, normal rhythm, normal heart sounds. Absent: systolic murmur, diastolic murmur, rubs, gallop, clicks Back exam: Present: normal inspection, other (2cm erythematous, tender, and indurated lesion to right back ) Course Vital Signs 09/19/23 09/19/23 01:52 04:12 Temperature 98 F 98.1 F Pulse Rate 102 H 75 Respiratory 18 18 Rate Blood Pressure 154/101 120/69 O2 Sat by Pulse 100 98 Oximetry Procedures - Incision & Drainage Consent Obtained: verbal consent Indication: abscess Site: back Size (cm): 2 Anesthetic Used: lidocaine 1%, without epi Amount (mLs): 3 I&D Cleaning Method: Alcohol Wipe Sterile Field Used?: Yes Scalpel Used: #11 Ultrasound used: No Needle Aspiration Performed?: Yes Irrigation Performed?: Yes I&D Drainage Obtained: Pus, Blood Loculation Noted: probing needed to break Insertion of drain: No Culture Obtained?: No Patient Tolerated Procedure: well Medical Decision Making - Medical Decision Making Was pt. sent in by a medical professional or institution (PHONG Velazquez, ANIMAL NUTRITION CONSULTANT, urgent care, hospital, or fpc...) When possible be specific @ -No Did you speak to anyone other than the patient for history (EMS, parent, family, police, friend...)? What history was obtained from this source @ -No Did you review nursing and triage notes (agree or disagree)? Why? @ -I reviewed and agree with nursing and triage notes Were old charts reviewed (outside hosp., previous admission, EMS record, old EKG, old radiological studies, urgent care reports/EKG's, fpc records)? Report findings @ -No old charts were reviewed Differential Diagnosis (chest pain, altered mental status, abdominal pain women, abdominal pain men, vaginal bleeding, weakness, fever, dyspnea, syncope, headache, dizziness, GI bleed, back pain, seizure, CVA, palpatations, mental health, musculoskeletal)? @ -Cellulitis, abscess, cyst noted at this is not meant to be all-inclusive EKG interpreted by me (3pts min.). @ -None X-rays interpreted by me (1pt min.). @ -None done CT interpreted by me (1pt min.). @ -None done U/S interpreted by me (1pt. min.). @ -None done What testing was considered but not performed or refused? (CT, X-rays, U/S, labs)? Why? @ -None What meds were considered but not given or refused? Why? @ -None Did you discuss the management of the patient with other professionals (professionals i.e. , PA, ANIMAL NUTRITION CONSULTANT, lab, RT, psych nurse, social worker health services, roll off driver, teacher, field health officer, egg caser)? Give summary @ -No Was smoking cessation discussed for >3mins.? @ -No Was critical care preformed (if so, how long)? @ -No Were there social determinants of health that impacted care today? How? (Homelessness, low income, unemployed, alcoholism, drug addiction, transportation, low edu. Level, literacy, decrease access to med. care, senior living, rehab)? @ -No Was there de-escalation of care discussed even if they declined (Discuss DNR or withdrawal of care, Hospice)? DNR status @ -No What co-morbidities impacted this encounter? (DM, HTN, Smoking, COPD, CAD, Cancer, CVA, ARF, Chemo, Hep., AIDS, mental health diagnosis, sleep apnea, morbid obesity)? @ -None Was patient admitted / discharged? Hospital course, mention meds given and route, prescriptions, significant lab abnormalities, going to OR and other pertinent info. @ -Discharge. 28-year-old female presented to the ER with a chief complaint of back abscess. History and physical exam completed. Vitals stable. General surgery distress and nontoxic-appearing. Exam remarkable for a 2 cm erythematous, tender and indurated area to right back concerning of an abscess. No draining present. Needle aspiration formed with purulent drainage. I&D performed with 11 blade significant for purulent drainage and blood. Patient tolerated procedure well. Patient was started on clindamycin as she has a MRSA history. Advise close follow-up with PCP. Patient stable for discharge. Patient verbally expressed understanding agreement care plan. Patient discharged stable condition. Return parameters discussed. Case discussed with ED attending, Dr. Perez. Undiagnosed new problem with uncertain prognosis? @ -No Drug Therapy requiring intensive monitoring for toxicity (Heparin, Nitro, Insulin, Cardizem)? @ -No Were any procedures done? @ -Yes, I&D Diagnosis/symptom? @ -Abscess Acute, or Chronic, or Acute on Chronic? @ -Acute Uncomplicated (without systemic symptoms) or Complicated (systemic symptoms)? @ -Uncomplicated Side effects of treatment? @ -No Exacerbation, Progression, or Severe Exacerbation? @ -No Poses a threat to life or bodily function? How? (Chest pain, [place], [place], pneumonia, PE, COPD, DKA, ARF, appy, cholecystitis, CVA, Diverticulitis, Homicidal, Suicidal, threat to staff... and all critical care pts) @ -No Disposition Clinical Impression: Abscess Disposition: HOME SELF-CARE Condition: Stable Instructions (If sedation given, give patient instructions): Abscess (ED) Additional Instructions: Continue to use heat and massage area. Complete full course of antibiotics. Follow-up with PCP. Return to the ER for any new or worsening concerns. Prescriptions: clindamycin HCL [Cleocin] 300 mg PO Q8H 7 Days #21 cap Is patient prescribed a controlled substance at d/c from ED?: No Referrals: Benito Carreon DO [Primary Care Provider] - 1-2 days Time of Disposition: 03:33
[2023-09-19] MEDS: CLINDAMYCIN 150 MG CAP PO STA (03:55)
[2023-09-19 04:19] VITALS: BP 120/69; PULSE 75; TEMP 98.1
== END 2023-09-19 04:18 | disposition home or self-care (01) ==
LOC: EC 01:51
DX: L02.212 Cutaneous abscess of back [any part, except buttock and flank] (principal); F17.200 Nicotine dependence, unspecified, uncomplicated; Z88.2 Allergy status to sulfonamides
CPT/HCPCS: 10060; 99282; J2001

== ENCOUNTER 2024-06-03 02:13 | Emergency (ER) | payer OTHER ==
[2024-06-03 02:18] VITALS: BP 141/83; PULSE 100; RESP 18; TEMP 97.5
--- NOTE | 2024-06-03 02:49 | ED ---
ENT HPI - General Chief complaint: ENT Stated complaint: Abscess on right ear Time Seen by Provider: 06/03/24 02:18 Source: patient, RN notes reviewed Mode of arrival: ambulatory Limitations: no limitations - History of Present Illness Initial comments: 28 year old female presented to the emergency complaint of right ear pain. Patient states that a few days ago she noticed that there was a bump inside of her ear which her mom examined and there is concern that this was a abscess. Patient states that mom attempted to drain the area. Yesterday patient noticed that there is another bump that developed in her ear. Patient has been attempting to drain the pumps at home with pressure and Q-tips. She states that the pain has worsened and is concerned that her ear canals been swelling. Endorses history of MRSA skin infection. Denies excessive headphone use or recent swimming. - Related Data Previous Rx's Medication Instructions Recorded Doxycycline [Vibramycin] 100 mg PO BID #14 cap 11/20/21 Ibuprofen [Motrin] 800 mg PO Q8H PRN #30 tab 11/20/21 Albuterol Sulfate [Albuterol 1 puff PO Q4-6H PRN #8.5 gm 02/11/22 Sulfate Hfa] Oseltamivir Phosphate 75 mg PO BID 5 Days #10 capsule 02/11/22 Promethazine/Dextromethorphan 5 ml PO Q4-6H PRN #473 ml 02/11/22 [Promethazine-Dm Syrup] predniSONE 50 mg PO DAILY 5 Days #5 tablet 02/11/22 clindamycin HCL [Cleocin] 300 mg PO Q8H 7 Days #21 cap 09/19/23 clindamycin HCL 300 mg PO QID #40 cap 06/03/24 Allergies Allergy/AdvReac Type Severity Reaction Status Date / Time Sulfa (Sulfonamide Allergy Rash/Hives Verified 06/03/24 02:18 Antibiotics) Review of Systems ROS Statement: Those systems with pertinent positive or pertinent negative responses have been documented in the HPI. ROS Other: All systems not noted in ROS Statement are negative. Past Medical History Past Medical History: Thyroid Disorder Additional Past Medical History / Comment(s): hypothryoid; LUPUS History of Any Multi-Drug Resistant Organisms: MRSA Date of last positivie culture/infection: 12/20/2022 MDRO Source:: face Past Surgical History: Adenoidectomy, Cholecystectomy, Tonsillectomy Additional Past Surgical History / Comment(s): knee surgery Past Anesthesia/Blood Transfusion Reactions: No Reported Reaction Past Psychological History: Anxiety, Depression Smoking Status: Current every day smoker Past Alcohol Use History: Occasional Past Drug Use History: Marijuana - Past Family History Mother Additional Family Medical History / Comment(s): lung cancer. Von Willebrand bleeding disorder. Heart disease father Additional Family Medical History / Comment(s): reproductive CA General Exam Limitations: no limitations General appearance: alert, in no apparent distress Expanded Ear exam: Present: other (auditory ear canal abscess with head, no drainage, TM intact) TM/Canal exam: Canal Tenderness: Right TM Neck exam: Present: normal inspection. Absent: tenderness, meningismus, lymphadenopathy Respiratory exam: Present: normal lung sounds bilaterally. Absent: respiratory distress, wheezes, rales, rhonchi, stridor Cardiovascular Exam: Present: regular rate, normal rhythm, normal heart sounds. Absent: systolic murmur, diastolic murmur, rubs, gallop, clicks GI/Abdominal exam: Present: soft, normal bowel sounds. Absent: distended, tenderness, guarding, rebound, rigid Course Vital Signs 06/03/24 02:14 Temperature 97.5 F L Pulse Rate 100 Respiratory 18 Rate Blood Pressure 141/83 O2 Sat by Pulse 99 Oximetry Medical Decision Making - Medical Decision Making Was pt. sent in by a medical professional or institution (PHONG Velazquez, WELDING SPECIALIST, urgent care, hospital, or [facility]...) When possible be specific @ -No Did you speak to anyone other than the patient for history (EMS, parent, family, police, friend...)? What history was obtained from this source @ -No Did you review nursing and triage notes (agree or disagree)? Why? @ -I reviewed and agree with nursing and triage notes Were old charts reviewed (outside hosp., previous admission, EMS record, old EKG, old radiological studies, urgent care reports/EKG's, [facility] records)? Report findings @ -No old charts were reviewed Differential Diagnosis (chest pain, altered mental status, abdominal pain women, abdominal pain men, vaginal bleeding, weakness, fever, dyspnea, syncope, headache, dizziness, GI bleed, back pain, seizure, CVA, palpatations, mental health, musculoskeletal)? @ -Otitis media, otitis externa, mastoiditis, ear canal abscess, this list is not all inclusive EKG interpreted by me (3pts min.). @ none X-rays interpreted by me (1pt min.). @ -None done CT interpreted by me (1pt min.). @ -None done U/S interpreted by me (1pt. min.). @ -None done What testing was considered but not performed or refused? (CT, X-rays, U/S, labs)? Why? @ -None What meds were considered but not given or refused? Why? @ -None Did you discuss the management of the patient with other professionals (professionals i.e. DrRobert, PA, WELDING SPECIALIST, lab, RT, psych nurse, social and human services assistant, podiatric medicine doctor, teacher, chief supply chain officer, shoe caser)? Give summary @ -No Was smoking cessation discussed for >3mins.? @ -No Was critical care preformed (if so, how long)? @ -No Were there social determinants of health that impacted care today? How? (Homelessness, low income, unemployed, alcoholism, drug addiction, transportation, low edu. Level, literacy, decrease access to med. care, intermediate, rehab)? @ -No Was there de-escalation of care discussed even if they declined (Discuss DNR or withdrawal of care, Hospice)? DNR status @ -No What co-morbidities impacted this encounter? (DM, HTN, Smoking, COPD, CAD, Cancer, CVA, ARF, Chemo, Hep., AIDS, mental health diagnosis, sleep apnea, morbid obesity)? @ -None Was patient admitted / discharged? Hospital course, mention meds given and route, prescriptions, significant lab abnormalities, going to OR and other pert inent info. @ -Discharge. 28-year-old female presenting with right ear pain. Right ear is examined revealing a normal TM with no signs of erythema, bulging or perforation. There is noted to abscess of the auditory ear canal with purulence however no active drainage. Patient will be treated with oral antibiotics and topical antibiotics and instructed to follow-up with primary care provider. Return parameters discussed. Case discussed with Dr. Walker Undiagnosed new problem with uncertain prognosis? @ -No Drug Therapy requiring intensive monitoring for toxicity (Heparin, Nitro, Insulin, Cardizem)? @ -No Were any procedures done? @ -No Diagnosis/symptom? @ -Ear canal abscess Acute, or Chronic, or Acute on Chronic? @ -Acute Uncomplicated (without systemic symptoms) or Complicated (systemic symptoms)? @ -Uncomplicated Side effects of treatment? @ -No Exacerbation, Progression, or Severe Exacerbation? @ -No Poses a threat to life or bodily function? How? (Chest pain, [place], [place], pneumonia, PE, COPD, DKA, ARF, appy, cholecystitis, CVA, Diverticulitis, Homicidal, Suicidal, threat to staff... and all critical care pts) @ -No Disposition Clinical Impression: Abscess of right ear canal Disposition: HOME SELF-CARE Condition: Good Instructions (If sedation given, give patient instructions): Abscess (ED) Additional Instructions: Please return to the Emergency Department if symptoms worsen or any other concerns. Complete full course of Atarax as prescribed. Continue to use topical drops in the affected ear; 2 drops every 6 hours for 7 days. Prescriptions: clindamycin HCL 300 mg PO QID #40 cap Is patient prescribed a controlled substance at d/c from ED?: No Referrals: Benito Carreon DO [Primary Care Provider] - 1-2 days Time of Disposition: 02:48
[2024-06-03] MEDS: CLINDAMYCIN 150 MG CAP PO STA (02:56)
[2024-06-03] MEDS: TOBRAMYCIN 0.3% OPHTH DROPS 5 ML BTL RIGHT EAR STA (02:56)
[2024-06-03] MEDS: ACETAMINOPHEN TAB 325 MG TAB PO STA (02:57)
== END 2024-06-03 02:58 | disposition home or self-care (01) ==
LOC: EC 02:13
DX: H60.01 Abscess of right external ear (principal); F17.200 Nicotine dependence, unspecified, uncomplicated; Z88.2 Allergy status to sulfonamides
CPT/HCPCS: 99282

== ENCOUNTER 2024-08-11 00:43 | Emergency (ER) | payer OTHER ==
[2024-08-11 00:54] VITALS: BP 131/82; PULSE 102; RESP 20; TEMP 97.8
--- NOTE | 2024-08-11 01:19 | ED ---
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 Patient states that the areas been present for approximate the past 2 months however over the past 2 weeks and worsening frequently the past few days the area has been increasing in size, increasingly painful and tender to the touch. She states that the area will occasionally drain at home and she is attempted to relieve infection however symptoms of pain have persisted. Patient is scheduled for appointment with carbon paste mixer operator in [place] this month. Denies recent antibiotic use. Denies fevers, chills, nausea, vomiting. - Related Data Previous Rx's Medication Instructions Recorded Doxycycline [Vibramycin] 100 mg PO BID #14 cap 11/20/21 Ibuprofen [Motrin] 800 mg PO Q8H PRN #30 tab 11/20/21 Albuterol Sulfate [Albuterol 1 puff PO Q4-6H PRN #8.5 gm 02/11/22 Sulfate Hfa] Oseltamivir Phosphate 75 mg PO BID 5 Days #10 capsule 02/11/22 Promethazine/Dextromethorphan 5 ml PO Q4-6H PRN #473 ml 02/11/22 [Promethazine-Dm Syrup] predniSONE 50 mg PO DAILY 5 Days #5 tablet 02/11/22 clindamycin HCL [Cleocin] 300 mg PO Q8H 7 Days #21 cap 09/19/23 clindamycin HCL 300 mg PO QID #40 cap 06/03/24 clindamycin HCL 300 mg PO QID #40 cap 08/11/24 Allergies Allergy/AdvReac Type Severity Reaction Status Date / Time Sulfa (Sulfonamide Allergy Rash/Hives Verified 08/11/24 00:54 Antibiotics) Review of Systems ROS Statement: Those systems with pertinent positive or pertinent negative responses have been documented in the HPI. ROS Other: All systems not noted in ROS Statement are negative. Past Medical History Past Medical History: Thyroid Disorder Additional Past Medical History / Comment(s): hypothryoid; LUPUS History of Any Multi-Drug Resistant Organisms: MRSA Date of last positivie culture/infection: 12/20/2022 MDRO Source:: face Past Surgical History: Adenoidectomy, Cholecystectomy, Tonsillectomy Additional Past Surgical History / Comment(s): knee surgery Past Anesthesia/Blood Transfusion Reactions: No Reported Reaction Past Psychological History: Anxiety, Depression Smoking Status: Current every day smoker Past Alcohol Use History: Occasional Past Drug Use History: Marijuana - Past Family History Mother Additional Family Medical History / Comment(s): lung cancer. Von Willebrand bleeding disorder. Heart disease father Additional Family Medical History / Comment(s): reproductive CA General Exam Limitations: no limitations Head exam: Present: atraumatic, normocephalic, normal inspection, other (posterior scalp abscess- 1 cm in diameter, fluctuant with purulent head) ENT exam: Present: normal exam, mucous membranes moist Neck exam: Present: normal inspection. Absent: tenderness, meningismus, lymphadenopathy Respiratory exam: Present: normal lung sounds bilaterally. Absent: respiratory distress, wheezes, rales, rhonchi, stridor Cardiovascular Exam: Present: regular rate, normal rhythm, normal heart sounds. Absent: systolic murmur, diastolic murmur, rubs, gallop, clicks GI/Abdominal exam: Present: soft, normal bowel sounds. Absent: distended, tenderness, guarding, rebound, rigid Course Vital Signs 08/11/24 00:51 Temperature 97.8 F Pulse Rate 102 H Respiratory 20 Rate Blood Pressure 131/82 O2 Sat by Pulse 98 Oximetry Procedures - Incision & Drainage Consent Obtained: verbal consent Site: face Size (cm): 1 Anesthetic Used: lidocaine 1% Scalpel Used: #11 Culture Obtained?: No Patient Tolerated Procedure: well, no complications Medical Decision Making - Medical Decision Making Was pt. sent in by a medical professional or institution (, PA, PAVING BED MAKER, urgent care, hospital, or detention...) When possible be specific @ -No Did you speak to anyone other than the patient for history (EMS, parent, family, police, friend...)? What history was obtained from this source @ -No Did you review nursing and triage notes (agree or disagree)? Why? @ -I reviewed and agree with nursing and triage notes Were old charts reviewed (outside hosp., previous admission, EMS record, old EKG, old radiological studies, urgent care reports/EKG's, detention records)? Report findings @ -No old charts were reviewed Differential Diagnosis (chest pain, altered mental status, abdominal pain women, abdominal pain men, vaginal bleeding, weakness, fever, dyspnea, syncope, headache, dizziness, GI bleed, back pain, seizure, CVA, palpatations, mental health, musculoskeletal)? @ -Abscess, cellulitis, folliculitis, this list is not all inclusive EKG interpreted by me (3pts min.). @ none X-rays interpreted by me (1pt min.). @ -None done CT interpreted by me (1pt min.). @ -None done U/S interpreted by me (1pt. min.). @ -None done What testing was considered but not performed or refused? (CT, X-rays, U/S, labs)? Why? @ -None What meds were considered but not given or refused? Why? @ -None Did you discuss the management of the patient with other professionals (professionals i.e. , PA, PAVING BED MAKER, lab, RT, psych nurse, social media marketing specialist, emd special education teacher, teacher, customs officer, home health care case manager)? Give summary @ -No Was smoking cessation discussed for >3mins.? @ -No Was critical care preformed (if so, how long)? @ -No Were there social determinants of health that impacted care today? How? (Homelessness, low income, unemployed, alcoholism, drug addiction, transportation, low edu. Level, literacy, decrease access to med. care, halfway, rehab)? @ -No Was there de-escalation of care discussed even if they declined (Discuss DNR or withdrawal of care, Hospice)? DNR status @ -No What co-morbidities impacted this encounter? (DM, HTN, Smoking, COPD, CAD, Cancer, CVA, ARF, Chemo, Hep., AIDS, mental health diagnosis, sleep apnea, morbid obesity)? @ -None Was patient admitted / discharged? Hospital course, mention meds given and route, prescriptions, significant lab abnormalities, going to OR and other pertinent info. @ -Discharge. 29-year-old male presenting with abscess to the posterior scalp. There is noted 1 cm fluctuant indurated area consistent with an abscess. Topically was applied. Area was cleansed with ChloraPrep. Lidocaine subQ injected. Used with return of purulent material, blood, serous drainage. Patient is provided with dose of Rocephin and outpatient prescription for clindamycin to cover for history of MRSA skin infection. Recommend the patient continue warm compresses. Return parameters discussed. Case discussed with Dr. Walker Undiagnosed new problem with uncertain prognosis? @ -No Drug Therapy requiring intensive monitoring for toxicity (Heparin, Nitro, Insulin, Cardizem)? @ -No Were any procedures done? @ -Incision and drainage of abscess Diagnosis/symptom? @ -Abscess Acute, or Chronic, or Acute on Chronic? @ -Acute Uncomplicated (without systemic symptoms) or Complicated (systemic symptoms)? @ -uncompleted Side effects of treatment? @ -No Exacerbation, Progression, or Severe Exacerbation? @ -No Poses a threat to life or bodily function? How? (Chest pain, [place], [place], pneumonia, PE, COPD, DKA, ARF, appy, cholecystitis, CVA, Diverticulitis, Homicidal, Suicidal, threat to staff... and all critical care pts) @ -No Disposition Clinical Impression: Abscess Disposition: HOME SELF-CARE Condition: Stable Instructions (If sedation given, give patient instructions): Abscess Incision and Drainage (ED) Additional Instructions: Please return to the Emergency Department if symptoms worsen or any other concerns. Prescriptions: clindamycin HCL 300 mg PO QID #40 cap Is patient prescribed a controlled substance at d/c from ED?: No Referrals: Benito Carreon DO [Primary Care Provider] - 1-2 days Time of Disposition: 02:05
[2024-08-11] MEDS: LIDOCAINE 1% INJ 10MG/ML (20 ML MDV) SQ ONE (01:32)
[2024-08-11] MEDS: LIDOCAINE/EPINEPHR/TETRACAINE 5 ML BOTTLE TOPICAL ONE (01:37)
[2024-08-11] MEDS: cefTRIAXone 1,000 MG VIAL (IM USE) IM STA (01:38)
== END 2024-08-11 02:26 | disposition home or self-care (01) ==
LOC: EC 00:43
DX: L02.811 Cutaneous abscess of head [any part, except face] (principal); F17.200 Nicotine dependence, unspecified, uncomplicated; Z88.2 Allergy status to sulfonamides
CPT/HCPCS: 99283; 96372; 10060; J2003; J0696